=== PATIENT | male | born 1935 | race Caucasian/White ===

== ENCOUNTER 2016-06-28 09:35 | Outpatient (CLI) | payer MEDICARE, OTHER | END 2016-06-28 09:36 | disposition home or self-care (01) | DX: E11.9 Type 2 diabetes mellitus without complications (principal); I10 Essential (primary) hypertension; I50.9 Heart failure, unspecified ==

== ENCOUNTER 2016-08-12 08:44 | Outpatient (CLI) | payer MEDICARE, OTHER | END 2016-08-12 08:45 | disposition home or self-care (01) | DX: I50.9 Heart failure, unspecified (principal); I25.10 Atherosclerotic heart disease of native coronary artery without angina pectoris; I35.0 Nonrheumatic aortic (valve) stenosis; I10 Essential (primary) hypertension ==

== ENCOUNTER 2016-11-03 08:50 | Outpatient (CLI) | payer MEDICARE, OTHER ==
[2016-11-03 09:21] LABS: ALBUMIN/GLOBULIN RATIO 1.2 (1.0-2.2); BILIRUBIN,TOTAL 0.9 mg/dL (0.2-1.0); CALCIUM 10.5 mg/dL (8.5-10.3); CREATININE 1.4 mg/dL (0.6-1.2); POTASSIUM 4.7 mmol/L (3.5-5.0); TOTAL PROTEIN 7.8 g/dL (6.7-8.2)
[2016-11-03 10:23] LABS: HEMOGLOBIN A1C 0.78 g/dL
== END 2016-11-03 08:51 | disposition home or self-care (01) ==
LOC: LAB 08:50
PROVIDERS: ATTEND Internal Medicine
DX: E11.9 Type 2 diabetes mellitus without complications (principal)
CPT/HCPCS: 36415; 80053; 83036

== ENCOUNTER 2017-01-04 11:07 | Outpatient (CLI) | payer MEDICARE, OTHER ==
[2017-01-04 11:26] LABS: BASOPHILS # (AUTO) 0.1 10^3/uL (0.0-0.1); EOSINOPHILS # (AUTO) 0.2 10^3/uL (0.0-0.7); EOSINOPHILS % (AUTO) 2.3 %; HCT - HEMATOCRIT 42.7 % (42.0-52.0); HGB - HEMOGLOBIN 14.8 g/dL (14.0-18.0); LYMPHOCYTES # (AUTO) 1.5 10^3/uL (1.5-3.5); LYMPHOCYTES % (AUTO) 17.3 %; MEAN CORPUSCULAR HEMOGLOBIN 31.6 pg (27.0-31.0); MEAN CORPUSCULAR HGB CONC 34.5 g/dL (32.0-36.0); MEAN CORPUSCULAR VOLUME 91.3 fL (80.0-94.0); MEAN PLATELET VOLUME 8.7 fL (7.4-11.4); MONOCYTES # (AUTO) 0.5 10^3/uL (0.0-1.0); MONOCYTES % (AUTO) 5.9 %; NEUTROPHILS # (AUTO) 6.2 10^3/uL (1.5-6.6); NEUTROPHILS % (AUTO) 73.5 %; RED BLOOD COUNT 4.68 10^6/uL (4.70-6.10); RED CELL DISTRIBUTION WIDTH 14.4 % (12.0-15.0); UNCORRECTED WHITE BLOOD COUNT 8.5 x10^3/uL; WHITE BLOOD COUNT 8.5 x10^3/uL (4.8-10.8)
[2017-01-04 11:44] LABS: BUN - BLOOD UREA NITROGEN 49 mg/dL (6-20); CALCIUM 10.7 mg/dL (8.5-10.3); CARBON DIOXIDE - CO2 28 mmol/L (21-32); CHLORIDE 97 mmol/L (101-111); CHOL/HDL RATIO 4.6 (<5.0); CHOLESTEROL 158 mg/dL; CREATININE 1.8 mg/dL (0.6-1.2); GFR - MDRD 37 (>89); GLUCOSE 155 mg/dL (70-100); HDL CHOLESTEROL 34 mg/dL; LDL/HDL RATIO 1.9 (<3.6); POTASSIUM 5.2 mmol/L (3.5-5.0); SODIUM 135 mmol/L (135-145); TRIGLYCERIDES 290 mg/dL; VLDL CHOLESTEROL 58 mg/dL
== END 2017-01-04 11:08 | disposition home or self-care (01) ==
LOC: LAB 11:07
PROVIDERS: ATTEND Internal Medicine Cardiovascular Disease
DX: I50.9 Heart failure, unspecified (principal); E11.59 Type 2 diabetes mellitus with other circulatory complications; Z95.810 Presence of automatic (implantable) cardiac defibrillator; I35.0 Nonrheumatic aortic (valve) stenosis; I10 Essential (primary) hypertension
CPT/HCPCS: 36415; 80048; 80061; 85025

== ENCOUNTER 2017-02-27 10:02 | Outpatient (CLI) | payer MEDICARE, OTHER ==
[2017-02-27 10:35] LABS: CALCIUM 10.1 mg/dL (8.5-10.3); CREATININE 1.6 mg/dL (0.6-1.2); POTASSIUM 5.3 mmol/L (3.5-5.0)
[2017-02-27 10:44] LABS: HEMOGLOBIN A1C 0.81 g/dL
== END 2017-02-27 10:03 | disposition home or self-care (01) ==
LOC: LAB 10:02
PROVIDERS: ATTEND Internal Medicine
DX: E11.9 Type 2 diabetes mellitus without complications (principal)
CPT/HCPCS: 36415; 80048; 83036

== ENCOUNTER 2017-04-03 09:51 | Outpatient (CLI) | payer MEDICARE, OTHER ==
[2017-04-03 10:36] LABS: CALCIUM 10.2 mg/dL (8.5-10.3); CREATININE 1.5 mg/dL (0.6-1.2); POTASSIUM 4.7 mmol/L (3.5-5.0)
== END 2017-04-03 09:52 | disposition home or self-care (01) ==
LOC: LAB 09:51
PROVIDERS: ATTEND Internal Medicine Cardiovascular Disease
DX: I25.10 Atherosclerotic heart disease of native coronary artery without angina pectoris (principal); Z95.1 Presence of aortocoronary bypass graft; I50.9 Heart failure, unspecified; I10 Essential (primary) hypertension; E78.5 Hyperlipidemia, unspecified; I35.0 Nonrheumatic aortic (valve) stenosis; N18.3 Chronic kidney disease, stage 3 (moderate)
CPT/HCPCS: 36415; 80048

== ENCOUNTER 2017-05-30 10:03 | Outpatient (CLI) | payer MEDICARE, OTHER ==
[2017-05-30 10:48] LABS: CALCIUM 10.8 mg/dL (8.5-10.3); CREATININE 1.8 mg/dL (0.6-1.2)
[2017-05-30 10:56] LABS: HB2 TOTAL 16.3 g/dL; HEMOGLOBIN A1C 0.92 g/dL; HEMOGLOBIN A1C % 7.3 % (4.6-6.2)
== END 2017-05-30 10:04 | disposition home or self-care (01) ==
LOC: LAB 10:03
PROVIDERS: ATTEND Internal Medicine
DX: E11.9 Type 2 diabetes mellitus without complications (principal); I10 Essential (primary) hypertension
CPT/HCPCS: 36415; 80048; 83036

== ENCOUNTER 2017-07-03 09:45 | Outpatient (CLI) | payer MEDICARE, OTHER ==
[2017-07-03 10:26] LABS: CALCIUM 10.3 mg/dL (8.5-10.3); CREATININE 1.6 mg/dL (0.6-1.2)
== END 2017-07-03 09:46 | disposition home or self-care (01) ==
LOC: LAB 09:45
PROVIDERS: ATTEND Internal Medicine Cardiovascular Disease
DX: I25.10 Atherosclerotic heart disease of native coronary artery without angina pectoris (principal); I13.0 Hypertensive heart and chronic kidney disease with heart failure and stage 1 through stage 4 chronic kidney disease, or unspecified chronic kidney disease; N18.3 Chronic kidney disease, stage 3 (moderate); I50.9 Heart failure, unspecified; E78.5 Hyperlipidemia, unspecified; I35.0 Nonrheumatic aortic (valve) stenosis; Z95.1 Presence of aortocoronary bypass graft
CPT/HCPCS: 36415; 80048

== ENCOUNTER 2017-08-30 10:06 | Outpatient (CLI) | payer MEDICARE, OTHER ==
[2017-08-30 10:40] LABS: ALBUMIN 4.6 g/dL (3.2-5.5); ALBUMIN/GLOBULIN RATIO 1.4 (1.0-2.2); BILIRUBIN,TOTAL 0.6 mg/dL (0.2-1.0); CALCIUM 10.1 mg/dL (8.5-10.3); CREATININE 1.7 mg/dL (0.6-1.2); TOTAL PROTEIN 7.9 g/dL (6.7-8.2)
[2017-08-30 10:59] LABS: HB2 TOTAL 15.4 g/dL; HEMOGLOBIN A1C 0.87 g/dL; HEMOGLOBIN A1C % 7.3 % (4.6-6.2)
== END 2017-08-30 10:07 | disposition home or self-care (01) ==
LOC: LAB 10:06
PROVIDERS: ATTEND Internal Medicine
DX: I50.22 Chronic systolic (congestive) heart failure (principal); E11.9 Type 2 diabetes mellitus without complications
CPT/HCPCS: 36415; 80053; 83036

== ENCOUNTER 2017-11-21 10:15 | Outpatient (CLI) | payer MEDICARE, OTHER ==
[2017-11-21 10:31] LABS: BASOPHILS # (AUTO) 0.1 10^3/uL (0.0-0.1); BASOPHILS % (AUTO) 0.8 %; EOSINOPHILS # (AUTO) 0.2 10^3/uL (0.0-0.7); EOSINOPHILS % (AUTO) 3.3 %; HGB - HEMOGLOBIN 13.8 g/dL (14.0-18.0); LYMPHOCYTES # (AUTO) 1.7 10^3/uL (1.5-3.5); LYMPHOCYTES % (AUTO) 23.3 %; MEAN CORPUSCULAR HEMOGLOBIN 31.4 pg (27.0-31.0); MEAN CORPUSCULAR HGB CONC 33.3 g/dL (32.0-36.0); MEAN CORPUSCULAR VOLUME 94.4 fL (80.0-94.0); MEAN PLATELET VOLUME 8.8 fL (7.4-11.4); MONOCYTES # (AUTO) 0.5 10^3/uL (0.0-1.0); MONOCYTES % (AUTO) 6.6 %; NEUTROPHILS # (AUTO) 4.9 10^3/uL (1.5-6.6); PLT - PLATELET COUNT 156 10^3/uL (130-450); RED BLOOD COUNT 4.38 10^6/uL (4.70-6.10); RED CELL DISTRIBUTION WIDTH 14.8 % (12.0-15.0); WHITE BLOOD COUNT 7.4 x10^3/uL (4.8-10.8)
[2017-11-21 10:48] LABS: HB2 TOTAL 15.5 g/dL; HEMOGLOBIN A1C 0.86 g/dL; HEMOGLOBIN A1C % 7.2 % (4.6-6.2)
[2017-11-21 10:54] LABS: ALBUMIN 4.1 g/dL (3.2-5.5); ALBUMIN/GLOBULIN RATIO 1.1 (1.0-2.2); BILIRUBIN,TOTAL 0.8 mg/dL (0.2-1.0); CALCIUM 9.8 mg/dL (8.5-10.3); CREATININE 1.5 mg/dL (0.6-1.2); TOTAL PROTEIN 7.8 g/dL (6.7-8.2)
== END 2017-11-21 10:16 | disposition home or self-care (01) ==
LOC: LAB 10:15
PROVIDERS: ATTEND Internal Medicine
DX: I10 Essential (primary) hypertension (principal); E11.9 Type 2 diabetes mellitus without complications; E87.5 Hyperkalemia
CPT/HCPCS: 36415; 80053; 83036; 85025

== ENCOUNTER 2018-02-22 10:23 | Outpatient (CLI) | payer MEDICARE, OTHER ==
[2018-02-22 10:46] LABS: BASOPHILS # (AUTO) 0.1 10^3/uL (0.0-0.1); EOSINOPHILS # (AUTO) 0.2 10^3/uL (0.0-0.7); EOSINOPHILS % (AUTO) 2.4 %; HGB - HEMOGLOBIN 14.3 g/dL (14.0-18.0); LYMPHOCYTES # (AUTO) 1.3 10^3/uL (1.5-3.5); LYMPHOCYTES % (AUTO) 20.3 %; MEAN CORPUSCULAR HEMOGLOBIN 31.9 pg (27.0-31.0); MEAN CORPUSCULAR HGB CONC 34.5 g/dL (32.0-36.0); MEAN CORPUSCULAR VOLUME 92.4 fL (80.0-94.0); MEAN PLATELET VOLUME 8.8 fL (7.4-11.4); MONOCYTES # (AUTO) 0.5 10^3/uL (0.0-1.0); MONOCYTES % (AUTO) 7.8 %; NEUTROPHILS # (AUTO) 4.5 10^3/uL (1.5-6.6); NEUTROPHILS % (AUTO) 68.5 %; PLT - PLATELET COUNT 145 10^3/uL (130-450); RED BLOOD COUNT 4.47 10^6/uL (4.70-6.10); RED CELL DISTRIBUTION WIDTH 14.2 % (12.0-15.0); WHITE BLOOD COUNT 6.5 x10^3/uL (4.8-10.8)
[2018-02-22 11:14] LABS: CREATININE,URINE 34.6 mg/dL; MICROALBUM/CREATININE RATIO,UR 14.5 ug/mg (<30.0); MICROALBUMIN,URINE 0.5 mg/dL (0-300.0)
[2018-02-22 11:31] LABS: ALBUMIN 4.4 g/dL (3.2-5.5); ALBUMIN/GLOBULIN RATIO 1.3 (1.0-2.2); BILIRUBIN,TOTAL 0.9 mg/dL (0.2-1.0); CALCIUM 9.9 mg/dL (8.5-10.3); CREATININE 1.7 mg/dL (0.6-1.2); TOTAL PROTEIN 7.7 g/dL (6.7-8.2)
[2018-02-22 14:03] LABS: HB2 TOTAL 15.2 g/dL; HEMOGLOBIN A1C 0.94 g/dL; HEMOGLOBIN A1C % 7.8 % (4.6-6.2)
== END 2018-02-22 10:24 | disposition home or self-care (01) ==
LOC: LAB 10:23
PROVIDERS: ATTEND Internal Medicine
DX: I25.10 Atherosclerotic heart disease of native coronary artery without angina pectoris (principal); E11.22 Type 2 diabetes mellitus with diabetic chronic kidney disease; N18.9 Chronic kidney disease, unspecified
CPT/HCPCS: 36415; 80053; 82043; 82570; 83036; 85025

== ENCOUNTER 2018-03-27 09:38 | Outpatient (CLI) | payer MEDICARE, OTHER ==
[2018-03-27 10:18] LABS: BASOPHILS % (AUTO) 0.7 %; EOSINOPHILS # (AUTO) 0.2 10^3/uL (0.0-0.7); EOSINOPHILS % (AUTO) 2.6 %; LYMPHOCYTES # (AUTO) 1.3 10^3/uL (1.5-3.5); LYMPHOCYTES % (AUTO) 17.8 %; MEAN CORPUSCULAR HEMOGLOBIN 31.5 pg (27.0-31.0); MEAN CORPUSCULAR VOLUME 92.6 fL (80.0-94.0); MEAN PLATELET VOLUME 9.4 fL (7.4-11.4); MONOCYTES # (AUTO) 0.4 10^3/uL (0.0-1.0); MONOCYTES % (AUTO) 5.6 %; NEUTROPHILS # (AUTO) 5.2 10^3/uL (1.5-6.6); NEUTROPHILS % (AUTO) 73.3 %; PLT - PLATELET COUNT 149 10^3/uL (130-450); RED BLOOD COUNT 4.44 10^6/uL (4.70-6.10); RED CELL DISTRIBUTION WIDTH 14.7 % (12.0-15.0); WHITE BLOOD COUNT 7.2 x10^3/uL (4.8-10.8)
[2018-03-27 10:26] LABS: BUN - BLOOD UREA NITROGEN 52 mg/dL (6-20); CARBON DIOXIDE - CO2 24 mmol/L (21-32); CHLORIDE 99 mmol/L (101-111); CHOL/HDL RATIO 4.1 (<5.0); CHOLESTEROL 131 mg/dL; CREATININE 1.6 mg/dL (0.6-1.2); GFR - MDRD 42 (>89); GLUCOSE 154 mg/dL (70-100); HDL CHOLESTEROL 32 mg/dL; LDL CHOLESTEROL,CALCULATED 48 mg/dL; LDL/HDL RATIO 1.5 (<3.6); SODIUM 132 mmol/L (135-145); VLDL CHOLESTEROL 51 mg/dL
== END 2018-03-27 09:39 | disposition home or self-care (01) ==
LOC: LAB 09:38
PROVIDERS: ATTEND Internal Medicine Cardiovascular Disease
DX: I50.22 Chronic systolic (congestive) heart failure (principal)
CPT/HCPCS: 36415; 80048; 80061; 83721; 85025

== ENCOUNTER 2018-03-29 14:56 | Outpatient (CLI) | payer MEDICARE, OTHER ==
--- NOTE | 2018-03-29 17:13 | XRAY Report ---
Reason: CHRONIC SYSTOLIC HEART FAILURE Procedure Date: 03/29/2018 Accession Number: [id number] / [id number] Procedure: XR - Chest 2 View X-Ray CPT Code: 38741 FULL RESULT: EXAM: CHEST RADIOGRAPHY EXAM DATE: 03/29/2018 03:07 PM. CLINICAL HISTORY: CHRONIC SYSTOLIC HEART FAILURE. COMPARISON: CHEST 1 VIEW 03/14/2016 6:19 PM. TECHNIQUE: 2 views. FINDINGS: Lungs/Pleura: No focal opacities evident. No pleural effusion. No pneumothorax. Normal volumes. Mediastinum: The heart size is normal. There is a left chest pacemaker defibrillator device. The lead overlies the right ventricle. Sternotomy wires appear unchanged. There is mild aortic tortuosity. Other: None. IMPRESSION: 1. No evidence of edema or effusion. Clear lungs. 2. Mildly tortuous aorta. RADIA
== END 2018-03-29 14:57 | disposition home or self-care (01) ==
LOC: DI 14:56
PROVIDERS: ATTEND Internal Medicine Cardiovascular Disease
DX: I50.22 Chronic systolic (congestive) heart failure (principal); I77.1 Stricture of artery
CPT/HCPCS: 71046

== ENCOUNTER 2018-05-21 08:53 | Outpatient (CLI) | payer MEDICARE, OTHER ==
[2018-05-21 09:22] LABS: CALCIUM 9.6 mg/dL (8.5-10.3); CREATININE 1.6 mg/dL (0.6-1.2)
[2018-05-21 09:33] LABS: HB2 TOTAL 14.1 g/dL; HEMOGLOBIN A1C 0.8 g/dL; HEMOGLOBIN A1C % 7.3 % (4.6-6.2)
== END 2018-05-21 08:54 | disposition home or self-care (01) ==
LOC: LAB 08:53
PROVIDERS: ATTEND Internal Medicine
DX: E11.9 Type 2 diabetes mellitus without complications (principal); I50.22 Chronic systolic (congestive) heart failure; I10 Essential (primary) hypertension
CPT/HCPCS: 36415; 80048; 83036; 83880

== ENCOUNTER 2018-08-14 08:45 | Outpatient (CLI) | payer MEDICARE, OTHER ==
[2018-08-14 09:54] LABS: HB2 TOTAL 15.2 g/dL; HEMOGLOBIN A1C 0.91 g/dL; HEMOGLOBIN A1C % 7.6 % (4.6-6.2)
[2018-08-14 09:58] LABS: CALCIUM 10.2 mg/dL (8.5-10.3); CREATININE 1.5 mg/dL (0.6-1.2)
== END 2018-08-14 08:46 | disposition home or self-care (01) ==
LOC: LAB 08:45
PROVIDERS: ATTEND Internal Medicine
DX: E11.22 Type 2 diabetes mellitus with diabetic chronic kidney disease (principal); N18.9 Chronic kidney disease, unspecified
CPT/HCPCS: 36415; 80048; 83036

== ENCOUNTER 2018-11-14 09:36 | Outpatient (CLI) | payer MEDICARE, OTHER ==
[2018-11-14 09:58] LABS: CALCIUM 10.1 mg/dL (8.5-10.3); CREATININE 1.7 mg/dL (0.6-1.2)
[2018-11-14 10:21] LABS: HB2 TOTAL 14.4 g/dL; HEMOGLOBIN A1C 0.89 g/dL; HEMOGLOBIN A1C % 7.8 % (4.6-6.2)
== END 2018-11-14 09:37 | disposition home or self-care (01) ==
LOC: LAB 09:36
PROVIDERS: ATTEND Internal Medicine
DX: I25.10 Atherosclerotic heart disease of native coronary artery without angina pectoris (principal); I50.22 Chronic systolic (congestive) heart failure; E11.22 Type 2 diabetes mellitus with diabetic chronic kidney disease; N18.9 Chronic kidney disease, unspecified
CPT/HCPCS: 36415; 80048; 83036; 83880

== ENCOUNTER 2019-01-23 09:25 | Outpatient (CLI) | payer MEDICARE, OTHER ==
[2019-01-23 09:55] LABS: BASOPHILS % (AUTO) 0.6 %; EOSINOPHILS # (AUTO) 0.3 10^3/uL (0.0-0.7); EOSINOPHILS % (AUTO) 3.8 %; HGB - HEMOGLOBIN 13.5 g/dL (14.0-18.0); LYMPHOCYTES # (AUTO) 1.6 10^3/uL (1.5-3.5); LYMPHOCYTES % (AUTO) 22.6 %; MEAN CORPUSCULAR HEMOGLOBIN 31.6 pg (27.0-31.0); MEAN CORPUSCULAR HGB CONC 33.6 g/dL (32.0-36.0); MEAN CORPUSCULAR VOLUME 94.1 fL (80.0-94.0); MEAN PLATELET VOLUME 10.4 fL (7.4-11.4); MONOCYTES # (AUTO) 0.5 10^3/uL (0.0-1.0); MONOCYTES % (AUTO) 6.6 %; NEUTROPHILS # (AUTO) 4.5 10^3/uL (1.5-6.6); NEUTROPHILS % (AUTO) 65.8 %; PLT - PLATELET COUNT 153 10^3/uL (130-450); RED BLOOD COUNT 4.27 10^6/uL (4.70-6.10); RED CELL DISTRIBUTION WIDTH 13.5 % (12.0-15.0); WHITE BLOOD COUNT 6.9 x10^3/uL (4.8-10.8)
[2019-01-23 10:22] LABS: CALCIUM 10.3 mg/dL (8.5-10.3); CREATININE 1.5 mg/dL (0.6-1.2)
== END 2019-01-23 09:26 | disposition home or self-care (01) ==
LOC: LAB 09:25
PROVIDERS: ATTEND Internal Medicine Cardiovascular Disease
DX: I50.22 Chronic systolic (congestive) heart failure (principal); I25.5 Ischemic cardiomyopathy
CPT/HCPCS: 36415; 80048; 85025

== ENCOUNTER 2019-02-14 08:53 | Outpatient (CLI) | payer MEDICARE, OTHER ==
[2019-02-14 09:17] LABS: CALCIUM 10.2 mg/dL (8.5-10.3); CREATININE 1.7 mg/dL (0.6-1.2)
[2019-02-14 09:24] LABS: HB2 TOTAL 14.4 g/dL; HEMOGLOBIN A1C 0.87 g/dL; HEMOGLOBIN A1C % 7.7 % (4.6-6.2)
== END 2019-02-14 08:54 | disposition home or self-care (01) ==
LOC: LAB 08:53
PROVIDERS: ATTEND Internal Medicine
DX: E11.9 Type 2 diabetes mellitus without complications (principal)
CPT/HCPCS: 36415; 80048; 83036

== ENCOUNTER 2019-05-14 09:31 | Outpatient (CLI) | payer MEDICARE, OTHER ==
[2019-05-14 10:00] LABS: CALCIUM 10.6 mg/dL (8.5-10.3); CREATININE 1.6 mg/dL (0.6-1.2)
[2019-05-14 10:13] LABS: HB2 TOTAL 14.5 g/dL; HEMOGLOBIN A1C 0.89 g/dL; HEMOGLOBIN A1C % 7.8 % (4.6-6.2)
== END 2019-05-14 09:32 | disposition home or self-care (01) ==
LOC: LAB 09:31
PROVIDERS: ATTEND Internal Medicine
DX: E11.9 Type 2 diabetes mellitus without complications (principal); I10 Essential (primary) hypertension
CPT/HCPCS: 36415; 80048; 83036

== ENCOUNTER 2019-08-22 08:58 | Outpatient (CLI) | payer MEDICARE, OTHER ==
[2019-08-22 09:23] LABS: CREATININE 1.8 mg/dL (0.6-1.2)
[2019-08-22 09:41] LABS: HB2 TOTAL 14.6 g/dL; HEMOGLOBIN A1C 0.81 g/dL; HEMOGLOBIN A1C % 7.2 % (4.6-6.2)
== END 2019-08-22 08:59 | disposition home or self-care (01) ==
LOC: LAB 08:58
PROVIDERS: ATTEND Internal Medicine
DX: E11.9 Type 2 diabetes mellitus without complications (principal)
CPT/HCPCS: 36415; 80048; 83036

== ENCOUNTER 2020-01-31 09:00 | Outpatient (CLI) | payer MEDICARE, OTHER ==
[2020-01-31 09:17] LABS: BASOPHILS # (AUTO) 0.1 10^3/uL (0.0-0.1); EOSINOPHILS # (AUTO) 0.3 10^3/uL (0.0-0.7); EOSINOPHILS % (AUTO) 3.6 %; HGB - HEMOGLOBIN 13.4 g/dL (14.0-18.0); LYMPHOCYTES # (AUTO) 1.8 10^3/uL (1.5-3.5); LYMPHOCYTES % (AUTO) 24.2 %; MEAN CORPUSCULAR HEMOGLOBIN 31.8 pg (27.0-31.0); MEAN CORPUSCULAR HGB CONC 33.9 g/dL (32.0-36.0); MEAN CORPUSCULAR VOLUME 93.8 fL (80.0-94.0); MEAN PLATELET VOLUME 10.6 fL (7.4-11.4); MONOCYTES # (AUTO) 0.5 10^3/uL (0.0-1.0); MONOCYTES % (AUTO) 6.2 %; NEUTROPHILS # (AUTO) 4.7 10^3/uL (1.5-6.6); NEUTROPHILS % (AUTO) 64.6 %; PLT - PLATELET COUNT 149 10^3/uL (130-450); RED BLOOD COUNT 4.21 10^6/uL (4.70-6.10); RED CELL DISTRIBUTION WIDTH 13.9 % (12.0-15.0); WHITE BLOOD COUNT 7.2 x10^3/uL (4.8-10.8)
[2020-01-31 09:29] LABS: BUN - BLOOD UREA NITROGEN 55 mg/dL (6-20); CALCIUM 10.1 mg/dL (8.5-10.3); CARBON DIOXIDE - CO2 26 mmol/L (21-32); CHLORIDE 102 mmol/L (101-111); CHOLESTEROL 141 mg/dL; CREATININE 1.7 mg/dL (0.6-1.2); GLUCOSE 110 mg/dL (70-100); HDL CHOLESTEROL 35 mg/dL; LDL CHOLESTEROL,CALCULATED 59 mg/dL; LDL/HDL RATIO 1.7 (<3.6); SODIUM 138 mmol/L (135-145); VLDL CHOLESTEROL 47 mg/dL
== END 2020-01-31 09:01 | disposition home or self-care (01) ==
LOC: LAB 09:00
PROVIDERS: ATTEND Internal Medicine Cardiovascular Disease
DX: N18.3 Chronic kidney disease, stage 3 (moderate) (principal); I25.10 Atherosclerotic heart disease of native coronary artery without angina pectoris
CPT/HCPCS: 36415; 80048; 80061; 83721; 85025

== ENCOUNTER 2020-04-03 09:40 | Outpatient (CLI) | payer MEDICARE, OTHER ==
[2020-04-03 09:49] LABS: BASOPHILS # (AUTO) 0.1 10^3/uL (0.0-0.1); BASOPHILS % (AUTO) 0.9 %; EOSINOPHILS # (AUTO) 0.2 10^3/uL (0.0-0.7); EOSINOPHILS % (AUTO) 3.1 %; HGB - HEMOGLOBIN 13.4 g/dL (14.0-18.0); LYMPHOCYTES # (AUTO) 1.6 10^3/uL (1.5-3.5); LYMPHOCYTES % (AUTO) 24.5 %; MEAN CORPUSCULAR HEMOGLOBIN 31.5 pg (27.0-31.0); MEAN CORPUSCULAR VOLUME 95.3 fL (80.0-94.0); MEAN PLATELET VOLUME 10.6 fL (7.4-11.4); MONOCYTES # (AUTO) 0.4 10^3/uL (0.0-1.0); MONOCYTES % (AUTO) 6.6 %; NEUTROPHILS # (AUTO) 4.3 10^3/uL (1.5-6.6); NEUTROPHILS % (AUTO) 64.6 %; PLT - PLATELET COUNT 147 10^3/uL (130-450); RED BLOOD COUNT 4.26 10^6/uL (4.70-6.10); RED CELL DISTRIBUTION WIDTH 13.5 % (12.0-15.0); WHITE BLOOD COUNT 6.7 x10^3/uL (4.8-10.8)
[2020-04-03 10:08] LABS: CALCIUM 9.9 mg/dL (8.5-10.3)
[2020-04-04 08:05] LABS: HEMOGLOBIN A1c% 7.2 % (4.27-6.07)
== END 2020-04-03 09:41 | disposition home or self-care (01) ==
LOC: LAB 09:40
PROVIDERS: ATTEND Internal Medicine
DX: I25.10 Atherosclerotic heart disease of native coronary artery without angina pectoris (principal); E11.22 Type 2 diabetes mellitus with diabetic chronic kidney disease; N18.9 Chronic kidney disease, unspecified
CPT/HCPCS: 36415; 80048; 83036; 85025

== ENCOUNTER 2020-07-08 08:00 | Outpatient (CLI) | payer MEDICARE, OTHER ==
[2020-07-08 09:07] LABS: BASOPHILS # (AUTO) 0.1 10^3/uL (0.0-0.1); BASOPHILS % (AUTO) 1.2 %; EOSINOPHILS # (AUTO) 0.2 10^3/uL (0.0-0.7); EOSINOPHILS % (AUTO) 3.2 %; HGB - HEMOGLOBIN 13.9 g/dL (14.0-18.0); LYMPHOCYTES # (AUTO) 1.5 10^3/uL (1.5-3.5); LYMPHOCYTES % (AUTO) 25.2 %; MEAN CORPUSCULAR HEMOGLOBIN 31.6 pg (27.0-31.0); MEAN CORPUSCULAR HGB CONC 33.3 g/dL (32.0-36.0); MEAN PLATELET VOLUME 10.9 fL (7.4-11.4); MONOCYTES # (AUTO) 0.5 10^3/uL (0.0-1.0); MONOCYTES % (AUTO) 7.6 %; NEUTROPHILS # (AUTO) 3.7 10^3/uL (1.5-6.6); NEUTROPHILS % (AUTO) 62.5 %; PLT - PLATELET COUNT 134 10^3/uL (130-450); RED CELL DISTRIBUTION WIDTH 13.1 % (12.0-15.0); WHITE BLOOD COUNT 5.9 x10^3/uL (4.8-10.8)
[2020-07-08 09:16] LABS: ALBUMIN 4.4 g/dL (3.2-5.5); ALBUMIN/GLOBULIN RATIO 1.3 (1.0-2.2); BILIRUBIN,TOTAL 0.8 mg/dL (0.2-1.0); CALCIUM 10.3 mg/dL (8.5-10.3); CREATININE 1.5 mg/dL (0.6-1.2); TOTAL PROTEIN 7.7 g/dL (6.7-8.2)
[2020-07-08 10:13] LABS: MICROALBUMIN,URINE 18.1 mg/dL (0-300.0)
[2020-07-08 15:22] LABS: HEMOGLOBIN A1c% 7.3 % (4.27-6.07)
== END 2020-07-08 23:59 | disposition home or self-care (01) ==
LOC: LAB 08:00
PROVIDERS: ATTEND Internal Medicine
DX: I12.9 Hypertensive chronic kidney disease with stage 1 through stage 4 chronic kidney disease, or unspecified chronic kidney disease (principal); E11.22 Type 2 diabetes mellitus with diabetic chronic kidney disease; N18.9 Chronic kidney disease, unspecified; E87.5 Hyperkalemia
CPT/HCPCS: 36415; 80053; 82043; 82570; 83036; 85025

== ENCOUNTER 2020-09-09 17:49 | Outpatient (CLI) | payer MEDICARE, OTHER ==
[2020-09-09 18:09] LABS: BASOPHILS # (AUTO) 0.1 10^3/uL (0.0-0.1); BASOPHILS % (AUTO) 0.7 %; EOSINOPHILS # (AUTO) 0.2 10^3/uL (0.0-0.7); EOSINOPHILS % (AUTO) 3.2 %; HGB - HEMOGLOBIN 14.1 g/dL (14.0-18.0); LYMPHOCYTES # (AUTO) 1.8 10^3/uL (1.5-3.5); LYMPHOCYTES % (AUTO) 25.6 %; MEAN CORPUSCULAR HEMOGLOBIN 30.9 pg (27.0-31.0); MEAN CORPUSCULAR HGB CONC 32.8 g/dL (32.0-36.0); MEAN CORPUSCULAR VOLUME 94.1 fL (80.0-94.0); MEAN PLATELET VOLUME 10.9 fL (7.4-11.4); MONOCYTES # (AUTO) 0.5 10^3/uL (0.0-1.0); MONOCYTES % (AUTO) 7.3 %; NEUTROPHILS # (AUTO) 4.5 10^3/uL (1.5-6.6); NEUTROPHILS % (AUTO) 62.9 %; PLT - PLATELET COUNT 155 10^3/uL (130-450); RED BLOOD COUNT 4.57 10^6/uL (4.70-6.10); RED CELL DISTRIBUTION WIDTH 13.7 % (12.0-15.0); WHITE BLOOD COUNT 7.1 x10^3/uL (4.8-10.8)
[2020-09-09 18:13] LABS: INR 1.2 (0.8-1.2); PT - PROTHROMBIN TIME 13.4 secs (9.9-12.6)
[2020-09-09 18:18] LABS: BILIRUBIN,URINE NEGATIVE (NEGATIVE); GLUCOSE, URINE (UA) NEGATIVE (NEGATIVE); KETONES,URINE (UA) NEGATIVE (NEGATIVE); LEUKOCYTE ESTERASE, URINE NEGATIVE (NEGATIVE); NITRITE,URINE NEGATIVE (NEGATIVE); OCCULT BLOOD,URINE LARGE (NEGATIVE); PROTEIN,URINE TRACE mg/dL (NEGATIVE); UROBILINOGEN,URINE 0.2 (NORMAL) E.U./dL (NORMAL)
[2020-09-09 18:20] LABS: PARTIAL THROMBOPLASTIN TIME 28.6 secs (24.9-33.3)
[2020-09-09 18:34] LABS: CLARITY,URINE HAZY (CLEAR)
[2020-09-09 19:03] LABS: BACTERIA,URINE Rare /HPF (None Seen); RBC,URINE TNTC /HPF (0-5); SQUAMOUS EPITHELIAL CELL,UR RARE Squamous (<= Few); WBC,URINE 0-3 /HPF (0-3)
== END 2020-09-09 17:50 | disposition home or self-care (01) ==
LOC: LAB 17:49
PROVIDERS: ATTEND Internal Medicine
DX: R23.8 Other skin changes (principal); R31.9 Hematuria, unspecified
CPT/HCPCS: 36415; 81001; 85025; 85610; 85651; 85730

== ENCOUNTER 2020-11-03 09:58 | Outpatient (CLI) | payer MEDICARE, OTHER ==
[2020-11-03 10:36] LABS: BASOPHILS % (AUTO) 0.6 %; EOSINOPHILS # (AUTO) 0.2 10^3/uL (0.0-0.7); EOSINOPHILS % (AUTO) 2.6 %; HCT - HEMATOCRIT 42.8 % (42.0-52.0); HGB - HEMOGLOBIN 14.2 g/dL (14.0-18.0); LYMPHOCYTES # (AUTO) 1.6 10^3/uL (1.5-3.5); LYMPHOCYTES % (AUTO) 22.5 %; MEAN CORPUSCULAR HEMOGLOBIN 30.9 pg (27.0-31.0); MEAN CORPUSCULAR HGB CONC 33.2 g/dL (32.0-36.0); MEAN PLATELET VOLUME 10.8 fL (7.4-11.4); MONOCYTES # (AUTO) 0.4 10^3/uL (0.0-1.0); MONOCYTES % (AUTO) 5.9 %; NEUTROPHILS # (AUTO) 4.7 10^3/uL (1.5-6.6); PLT - PLATELET COUNT 155 10^3/uL (130-450); RED CELL DISTRIBUTION WIDTH 13.8 % (12.0-15.0); WHITE BLOOD COUNT 6.9 x10^3/uL (4.8-10.8)
[2020-11-03 10:46] LABS: CALCIUM 10.4 mg/dL (8.5-10.3); CREATININE 1.7 mg/dL (0.6-1.2); POTASSIUM 4.5 mmol/L (3.5-5.0)
[2020-11-03 11:22] LABS: CREATININE,URINE 116.4 mg/dL; MICROALBUM/CREATININE RATIO,UR 527.5 ug/mg (<30.0); MICROALBUMIN,URINE 61.4 mg/dL (0-300.0)
[2020-11-03 12:56] LABS: ESTIMATED AVERAGE GLUCOSE 174 mg/dL (70-100); HEMOGLOBIN A1c% 7.7 % (4.27-6.07)
== END 2020-11-03 09:59 | disposition home or self-care (01) ==
LOC: LAB 09:58
PROVIDERS: ATTEND Internal Medicine
DX: E11.22 Type 2 diabetes mellitus with diabetic chronic kidney disease (principal); I25.10 Atherosclerotic heart disease of native coronary artery without angina pectoris; N18.9 Chronic kidney disease, unspecified
CPT/HCPCS: 36415; 80048; 82043; 82570; 83036; 85025

== ENCOUNTER 2020-11-24 12:37 | Outpatient (CLI) | payer MEDICARE, OTHER ==
[2020-11-24 13:02] LABS: CALCIUM 10.6 mg/dL (8.5-10.3); CREATININE 1.6 mg/dL (0.6-1.2); POTASSIUM 4.4 mmol/L (3.5-5.0)
== END 2020-11-24 12:38 | disposition home or self-care (01) ==
LOC: LAB 12:37
PROVIDERS: ATTEND Internal Medicine Cardiovascular Disease
DX: I50.22 Chronic systolic (congestive) heart failure (principal)
CPT/HCPCS: 36415; 80048

== ENCOUNTER 2020-12-31 07:51 | Outpatient (CLI) | payer MEDICARE, OTHER | END 2020-12-31 07:52 | disposition home or self-care (01) | LOC: LAB 07:51 | PROVIDERS: ATTEND Specialist | DX: R31.0 Gross hematuria (principal) | CPT/HCPCS: 36415; 84153 ==

== ENCOUNTER 2021-02-02 09:17 | Outpatient (CLI) | payer MEDICARE, OTHER ==
[2021-02-02 09:38] LABS: BASOPHILS # (AUTO) 0.1 10^3/uL (0.0-0.1); BASOPHILS % (AUTO) 0.8 %; EOSINOPHILS # (AUTO) 0.2 10^3/uL (0.0-0.7); EOSINOPHILS % (AUTO) 3.7 %; HCT - HEMATOCRIT 42.6 % (42.0-52.0); HGB - HEMOGLOBIN 13.7 g/dL (14.0-18.0); LYMPHOCYTES # (AUTO) 1.3 10^3/uL (1.5-3.5); LYMPHOCYTES % (AUTO) 22.4 %; MEAN CORPUSCULAR HEMOGLOBIN 30.7 pg (27.0-31.0); MEAN CORPUSCULAR HGB CONC 32.2 g/dL (32.0-36.0); MEAN CORPUSCULAR VOLUME 95.5 fL (80.0-94.0); MEAN PLATELET VOLUME 10.1 fL (7.4-11.4); MONOCYTES # (AUTO) 0.4 10^3/uL (0.0-1.0); MONOCYTES % (AUTO) 7.4 %; NEUTROPHILS # (AUTO) 3.9 10^3/uL (1.5-6.6); NEUTROPHILS % (AUTO) 65.4 %; PLT - PLATELET COUNT 128 10^3/uL (130-450); RED BLOOD COUNT 4.46 10^6/uL (4.70-6.10); WHITE BLOOD COUNT 5.9 x10^3/uL (4.8-10.8)
[2021-02-02 09:54] LABS: BUN - BLOOD UREA NITROGEN 38 mg/dL (6-20); CALCIUM 10.5 mg/dL (8.5-10.3); CARBON DIOXIDE - CO2 24 mmol/L (21-32); CHLORIDE 104 mmol/L (101-111); CHOL/HDL RATIO 4.5 (<5.0); CHOLESTEROL 153 mg/dL; CREATININE 1.8 mg/dL (0.6-1.2); GFR - MDRD 36 (>89); GLUCOSE 119 mg/dL (70-100); HDL CHOLESTEROL 34 mg/dL; LDL CHOLESTEROL,CALCULATED 73 mg/dL; LDL/HDL RATIO 2.1 (<3.6); POTASSIUM 4.8 mmol/L (3.5-5.0); SODIUM 139 mmol/L (135-145); TRIGLYCERIDES 228 mg/dL; VLDL CHOLESTEROL 46 mg/dL
== END 2021-02-02 09:18 | disposition home or self-care (01) ==
LOC: LAB 09:17
PROVIDERS: ATTEND Internal Medicine Cardiovascular Disease
DX: I25.10 Atherosclerotic heart disease of native coronary artery without angina pectoris (principal)
CPT/HCPCS: 36415; 80048; 80061; 83721; 85025

== ENCOUNTER 2021-03-09 09:47 | Outpatient (CLI) | payer MEDICARE, OTHER ==
[2021-03-09 10:17] LABS: CALCIUM 10.9 mg/dL (8.5-10.3); CREATININE 1.7 mg/dL (0.6-1.2); POTASSIUM 4.5 mmol/L (3.5-5.0)
[2021-03-09 14:17] LABS: ESTIMATED AVERAGE GLUCOSE 160 mg/dL (70-100); HEMOGLOBIN A1c% 7.2 % (4.27-6.07)
== END 2021-03-09 09:48 | disposition home or self-care (01) ==
LOC: LAB 09:47
PROVIDERS: ATTEND Internal Medicine
DX: E11.22 Type 2 diabetes mellitus with diabetic chronic kidney disease (principal); N18.32 Chronic kidney disease, stage 3b
CPT/HCPCS: 36415; 80048; 83036

== ENCOUNTER 2021-05-05 11:17 | Outpatient (CLI) | payer MEDICARE, OTHER ==
[2021-05-05 11:49] LABS: CREATININE 1.8 mg/dL (0.6-1.2)
[2021-05-05] MEDS ORDERED: IOPAMIDOL-300 100 ML VIAL ONE (12:02)
[2021-05-05] MEDS ORDERED: IOPAMIDOL-300 100 ML VIAL IVP ONE (20:42)
--- NOTE | 2021-05-06 08:43 | CT Report ---
PROCEDURE: IVP INDICATIONS: BLADDER CA CONTRAST: IV CONTRAST: Isovue 300 ml: 100 PO CONTRAST: *NO PO CONTRAST TECHNIQUE: After the administration of oral and intravenous contrast, 5 mm thick sections acquired from the diap hragms to the symphysis. 5 mm thick coronal and sagittal reformats were acquired. For radiation dos e reduction, the following was used: automated exposure control, adjustment of mA and/or kV accordin g to patient size. COMPARISON: None. FINDINGS: Image quality: Excellent. Lung bases: Lung bases are clear. Heart size is mildly increased. There is severe coronary artery calcification. Small hiatal hernia. There is concentric thickening of the distal esophagus at the GE junction. Urinary system: Both kidneys are normal in size and enhancement. Small low-density cortical nodules in kidneys are most likely cysts. Contrast-filled renal calyces are normal in morphology without vick ling defects. Contrast filled portions of both ureters are normal in caliber. There are multiple bladder masses (8-10) consistent with bladder cancer. Reference lesions are listed in the followin) left bladder base; series 6 image 84; 2.1 x 3.2 cm. 2) left posterior bladder wall; series 6 image 79; 2.2 x 1.8 cm. 3) right bladder base; series 6 image 79; 2.6 x 2.2 cm. 4) right lateral bladder wall; series 6 image 80; 2.3 x 1.6 cm Solid organs: Liver and spleen are normal in size and enhancement. Gallbladder contains small galls tones. Biliary system is non dilated. Pancreas enhances normally. No adrenal nodules. Peritoneum and bowel: Bowel loops demonstrate normal wall thickness and caliber. No free fluid or a ir. Nodes and vessels: No retroperitoneal or mesenteric adenopathy by size criteria. Aorta and inferior vena cava are normal in size. There is moderate moderate atherosclerotic calcifications. Moderate st enosis at origins of the arteries bilaterally and the celiac trunk. Abdominal wall: No ventral hernias. Small fat-containing left inguinal hernia. Pelvis: No pathologic free pelvic fluid. No inguinal hernias or adenopathy. Bones: No suspicious bony lesions. No vertebral body compression fractures. IMPRESSION: 1. 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 2. No lymphadenopathy in abdomen or pelvis. 3. No findings to suggest distant metastasis. 4. No filling defects in upper renal collecting systems or ureters. No hydronephrosis. 5. Small low-density nodules in kidneys bilaterally are most likely renal cysts. No solid renal carmina s. 6. Small hiatal hernia. There is concentric thickening of the distal esophagus at the GE junction. Re commend esophagram or upper endoscopy for follow-up. 7. Cholelithiasis. Reviewed by: Tanner Beverly MD on 05/06/2021 8:41 AM PST Approved by: Tanner Beverly MD on 05/06/2021 8:41 AM PST Station ID: [id number]
== END 2021-05-05 11:18 | disposition home or self-care (01) ==
LOC: LAB 11:17
PROVIDERS: ATTEND Urology
DX: C67.9 Malignant neoplasm of bladder, unspecified (principal); R82.3 Hemoglobinuria; R93.422 Abnormal radiologic findings on diagnostic imaging of left kidney; R93.421 Abnormal radiologic findings on diagnostic imaging of right kidney; K44.9 Diaphragmatic hernia without obstruction or gangrene; R93.3 Abnormal findings on diagnostic imaging of other parts of digestive tract; K80.20 Calculus of gallbladder without cholecystitis without obstruction
CPT/HCPCS: 36415; 74178; 82565; Q9967

== ENCOUNTER 2021-06-15 08:04 | Outpatient (CLI) | payer MEDICARE, OTHER ==
[2021-06-15 08:28] LABS: BILIRUBIN,URINE NEGATIVE (NEGATIVE); GLUCOSE, URINE (UA) NEGATIVE (NEGATIVE); KETONES,URINE (UA) NEGATIVE (NEGATIVE); LEUKOCYTE ESTERASE, URINE NEGATIVE (NEGATIVE); NITRITE,URINE NEGATIVE (NEGATIVE); OCCULT BLOOD,URINE LARGE (NEGATIVE); PROTEIN,URINE TRACE mg/dL (NEGATIVE); UROBILINOGEN,URINE 0.2 (NORMAL) E.U./dL (NORMAL)
[2021-06-15 08:29] LABS: BASOPHILS # (AUTO) 0.1 10^3/uL (0.0-0.1); BASOPHILS % (AUTO) 0.7 %; EOSINOPHILS # (AUTO) 0.2 10^3/uL (0.0-0.7); EOSINOPHILS % (AUTO) 3.3 %; HCT - HEMATOCRIT 42.5 % (42.0-52.0); HGB - HEMOGLOBIN 14.1 g/dL (14.0-18.0); LYMPHOCYTES # (AUTO) 1.5 10^3/uL (1.5-3.5); LYMPHOCYTES % (AUTO) 21.1 %; MEAN CORPUSCULAR HEMOGLOBIN 31.1 pg (27.0-31.0); MEAN CORPUSCULAR HGB CONC 33.2 g/dL (32.0-36.0); MEAN CORPUSCULAR VOLUME 93.6 fL (80.0-94.0); MEAN PLATELET VOLUME 10.7 fL (7.4-11.4); MONOCYTES # (AUTO) 0.6 10^3/uL (0.0-1.0); MONOCYTES % (AUTO) 7.9 %; NEUTROPHILS # (AUTO) 4.6 10^3/uL (1.5-6.6); NEUTROPHILS % (AUTO) 66.7 %; PLT - PLATELET COUNT 146 10^3/uL (130-450); RED BLOOD COUNT 4.54 10^6/uL (4.70-6.10); RED CELL DISTRIBUTION WIDTH 13.7 % (12.0-15.0); WHITE BLOOD COUNT 6.9 x10^3/uL (4.8-10.8)
[2021-06-15 08:33] LABS: CALCIUM 10.2 mg/dL (8.5-10.3); CREATININE 1.5 mg/dL (0.6-1.2); POTASSIUM 4.3 mmol/L (3.5-5.0)
[2021-06-15 09:54] LABS: BACTERIA,URINE None Seen /HPF (None Seen); CLARITY,URINE SL. CLOUDY (CLEAR); RBC,URINE TNTC /HPF (0-5); SQUAMOUS EPITHELIAL CELL,UR RARE Squamous (<= Few)
== END 2021-06-15 08:05 | disposition home or self-care (01) ==
LOC: LAB 08:04
DX: C67.9 Malignant neoplasm of bladder, unspecified (principal)
CPT/HCPCS: 36415; 80048; 81001; 85025; 86850; 86900; 86901; 87086

== ENCOUNTER 2021-07-07 09:49 | Outpatient (CLI) | payer MEDICARE, OTHER ==
[2021-07-07 10:26] LABS: ALBUMIN 4.2 g/dL (3.2-5.5); ALBUMIN/GLOBULIN RATIO 1.3 (1.0-2.2); CALCIUM 10.3 mg/dL (8.5-10.3); CREATININE 1.7 mg/dL (0.6-1.2); POTASSIUM 4.3 mmol/L (3.5-5.0); TOTAL PROTEIN 7.4 g/dL (6.7-8.2)
[2021-07-07 11:06] LABS: CREATININE,URINE 45.3 mg/dL; MICROALBUM/CREATININE RATIO,UR 933.8 ug/mg (<30.0); MICROALBUMIN,URINE 42.3 mg/dL (0-300.0)
[2021-07-07 12:14] LABS: ESTIMATED AVERAGE GLUCOSE 157 mg/dL (70-100); HEMOGLOBIN A1c% 7.1 % (4.27-6.07)
== END 2021-07-07 09:50 | disposition home or self-care (01) ==
LOC: LAB 09:49
PROVIDERS: ATTEND Internal Medicine
DX: E11.22 Type 2 diabetes mellitus with diabetic chronic kidney disease (principal)
CPT/HCPCS: 36415; 80053; 82043; 82570; 83036

== ENCOUNTER 2021-07-20 10:37 | Emergency (ER) | payer MEDICARE, OTHER ==
--- NOTE | 2021-07-20 11:04 | ED Physician Documentation ---
History of Present Illness - Stated complaint Stated Complaint: SWOLLEN LEGS,FEET - Chief complaint Chief Complaint: Cardiac - Additonal information Additional information: Patient is 86-year-old male presenting to the emergency department with chief complaint of lower extremity swelling as well as requesting removal of indwelling Johnson catheter. Recently underwent transurethral resection of a bladder tumor per his history. Was instructed to follow-up with primary care today for Johnson catheter removal. Has been had increased fluid intake since the surgery. Noticed swelling down in his feet and ankles. Endorses for history of congestive heart failure and takes 40 mg Lasix daily. Spoke to his surgeon this morning and was referred to the emergency department for evaluation. Denies any chest pain, shortness of breath, cough, abdominal pain, nausea, vomiting, significant weight gain. Review of Systems Ten Systems: 10 systems reviewed and negative Constitutional: denies: Fever Eyes: denies: Loss of vision Ears: denies: Loss of hearing Nose: denies: Rhinorrhea / runny nose Throat: denies: Dental pain / toothache Cardiac: reports: Pedal edema. denies: Chest pain / pressure GI: denies: Abdominal Pain : reports: Johnson Problem PD PAST MEDICAL HISTORY - Past Medical History Cardiovascular: Congestive heart failure, Hypertension, Coronary artery disease, [place], Murmur, Valve disorder, Other Respiratory: None Endocrine/Autoimmune: Type 2 diabetes GI: None : None HEENT: Chronic vision loss, Chronic hearing loss Psych: None Musculoskeletal: Gout Derm: Other - Past Surgical History General: Colonoscopy Cardiovascular: CABG, Coronary stent, Pacemaker, AICD, Cardiac catheterization HEENT: Cataracts Derm: Skin cancer surgery - Present Medications Home Medications: Ambulatory Orders Medication Instructions Recorded Confirmed Aspirin [Adult Low Dose Aspirin EC] 81 mg PO DAILY 01/20/16 07/20/21 Carvedilol 12.5 mg PO BID 01/20/16 07/20/21 Cholecalciferol (Vitamin D3) 2,000 unit PO DAILY 01/20/16 07/20/21 [Vitamin D3] Docusate Sodium 100 mg PO DAILY PRN 01/20/16 07/20/21 Glimepiride 4 mg PO BIDWM 01/20/16 07/20/21 Losartan [Cozaar] 50 mg PO DAILY 01/20/16 07/20/21 Pravastatin Sodium [Pravachol] 40 mg PO QPM 01/20/16 07/20/21 allopurinoL [Allopurinol] 100 mg PO DAILY 01/20/16 07/20/21 Furosemide [Lasix] 20 mg PO DAILY 03/15/16 07/20/21 Multivitamin [Multiple Vitamins] 1 tab PO DAILY 03/15/16 07/20/21 Nitroglycerin [Nitrostat] 0.4 mg SL Q5M PRN 03/15/16 07/20/21 Furosemide [Lasix] 40 mg PO DAILY 4 Days #4 tablet 07/20/21 - Allergies Allergies/Adverse Reactions: Allergies Allergy/AdvReac Type Severity Reaction Status Date / Time clopidogrel bisulfate * Allergy Rash Verified 07/20/21 10:47 [From Plavix] niacin Allergy Rash Verified 07/20/21 10:47 - Social History Does the pt smoke?: No Smoking Status: Never smoker PD ED PE NORMAL - General General: Alert and oriented X 3 - HEENT HEENT: Atraumatic - Neck Neck: Supple, no meningeal sign - Cardiac Cardiac: RRR, No gallop - Respiratory Respiratory: No respiratory distress, Clear bilaterally - Abdomen Abdomen: Normal bowel sounds - Male Male : Automated Process Operator present, Other (Johnson catheter in place. There is a nominal amount of dried blood noted at the urethral meatus. No active bleeding or leakage appreciated at this time.) - Extremities Extremities: No: No edema (+1 pitting edema bilateral lower extremities.) - Neuro Neuro: Alert and oriented X 3, carrier blower 2-12 intact, No motor deficit, No sensory deficit, Other Results - Vitals Vitals: Vital Signs - 24 hr 07/20/21 07/20/21 07/20/21 10:42 11:39 13:35 Temperature 35.9 C L Heart Rate 80 58 L 74 Respiratory 24 14 20 Rate Blood Pressure 142/67 H 137/64 H 144/66 H O2 Saturation 100 100 100 Oxygen O2 Source Room air - EKG (time done) 1051 Rate: Rate (enter#) (73) Rhythm: NSR [place]: LAD Intervals: Prolonged OK, LBBB Compare to prior EKG: Changed from prior EKG (New LBBB compare with 03/14/16) - Labs Labs: Laboratory Tests 07/20/21 07/20/21 07/20/21 11:23 11:23 11:23 WBC 7.3 RBC 3.77 L Hgb 11.7 L Hct 35.2 L MCV 93.4 MCH 31.0 MCHC 33.2 RDW 13.5 Plt Count 141 MPV 10.5 Neut # (Auto) 5.3 Lymph # (Auto) 1.1 L [place] # (Auto) 0.5 Eos # (Auto) 0.4 Baso # (Auto) 0.1 Absolute Nucleated RBC 0.00 Nucleated RBC % 0.0 VBG pH VBG pCO2 VBG pO2 VBG HCO3 VBG Total CO2 VBG O2 Saturation VBG Base Excess Sodium 135 Potassium 4.5 Chloride 100 L Carbon Dioxide 25 Anion Gap 10.0 BUN 32 H Creatinine 1.4 H Estimated GFR (MDRD) 48 L Glucose 231 H Calcium 9.4 Total Bilirubin 0.7 AST 34 ALT 32 Alkaline Phosphatase 58 B-Natriuretic Peptide 1144 H Total Protein 6.8 Albumin 3.7 Globulin 3.1 Albumin/Globulin Ratio 1.2 07/20/21 11:23 WBC RBC Hgb Hct MCV MCH MCHC RDW Plt Count MPV Neut # (Auto) Lymph # (Auto) [place] # (Auto) Eos # (Auto) Baso # (Auto) Absolute Nucleated RBC Nucleated RBC % VBG pH 7.408 VBG pCO2 41.0 VBG pO2 33.0 VBG HCO3 25.3 VBG Total CO2 26.5 VBG O2 Saturation 65.6 VBG Base Excess 0.6 Sodium Potassium Chloride Carbon Dioxide Anion Gap BUN Creatinine Estimated GFR (MDRD) Glucose Calcium Total Bilirubin AST ALT Alkaline Phosphatase B-Natriuretic Peptide Total Protein Albumin Globulin Albumin/Globulin Ratio PD MEDICAL DECISION MAKING - ED course Complexity details: reviewed results, d/w patient ED course: Patient is 86-year-old male presenting to the emergency department with complaint of lower extremity edema as well as requesting removal of Johnson c atheter. Recent transurethral resection of bladder tumors. Patient reports that he contacted his urologist today and was referred to the emergency department for lower extremity swelling. Denied any chest pain, shortness of breath, heart palpitations. He did have mild lower extremity edema. Labs obtained demonstrated a chronic renal insufficiency as well as an elevated BNP. Clinically patient does not appear to be fluid overloaded and there is no respiratory distress. Ultrasonography of the bilateral lower extremities was negative for DVT. Will increase patient's Lasix for the next 4 days and have him follow-up with both urology and primary care. At his request the Johnson catheter was removed in the emergency department. He was also instructed to return for any urinary obstruction. Departure - Departure Disposition: 01 Home, Self Care Clinical Impression: Leg swelling, Encounter for Johnson catheter removal Instructions: ED Edema Legs Bilateral Prescriptions: Furosemide [Lasix] 40 mg PO DAILY 4 Days #4 tablet Comments: Thank you for allowing us to care for you today at [facility]. All the testing performed in the emergency department was very reassuring. As we discussed I had like you to double your home Lasix from 20 mg to 40 mg for the next 4 days starting tomorrow. After this had like you to resume your previous prescription for 20 mg of Lasix daily. Please make a follow-up appointment with your primary care doctor and your urologist as soon as possible. If it anytime you find yourself having any increased difficulty with urination, or if you develop any new or worsening symptoms such as worsening chest pain, shortness of breath or worsening swelling in your lower extremities please return. Discharge Date/Time: 07/20/21 14:01
[2021-07-20 11:30] LABS: BASOPHILS # (AUTO) 0.1 10^3/uL (0.0-0.1); BASOPHILS % (AUTO) 0.7 %; EOSINOPHILS # (AUTO) 0.4 10^3/uL (0.0-0.7); EOSINOPHILS % (AUTO) 5.3 %; HCT - HEMATOCRIT 35.2 % (42.0-52.0); HGB - HEMOGLOBIN 11.7 g/dL (14.0-18.0); LYMPHOCYTES # (AUTO) 1.1 10^3/uL (1.5-3.5); LYMPHOCYTES % (AUTO) 15.6 %; MEAN CORPUSCULAR HGB CONC 33.2 g/dL (32.0-36.0); MEAN CORPUSCULAR VOLUME 93.4 fL (80.0-94.0); MEAN PLATELET VOLUME 10.5 fL (7.4-11.4); MONOCYTES # (AUTO) 0.5 10^3/uL (0.0-1.0); MONOCYTES % (AUTO) 6.2 %; NEUTROPHILS # (AUTO) 5.3 10^3/uL (1.5-6.6); NEUTROPHILS % (AUTO) 71.9 %; PLT - PLATELET COUNT 141 10^3/uL (130-450); RED BLOOD COUNT 3.77 10^6/uL (4.70-6.10); RED CELL DISTRIBUTION WIDTH 13.5 % (12.0-15.0); WHITE BLOOD COUNT 7.3 x10^3/uL (4.8-10.8)
[2021-07-20 11:33] LABS: VBG HCO3 25.3 mmol/L (23-28); VBG PH 7.408 (7.31-7.41)
[2021-07-20 11:34] LABS: VBG BASE EXCESS 0.6 mmol/L (-2 - +2); VBG OXYGEN SATURATION 65.6 % (60-80); VBG TOTAL CO2 26.5 mmol/L (24-29)
[2021-07-20 11:42] LABS: ALBUMIN 3.7 g/dL (3.2-5.5); ALBUMIN/GLOBULIN RATIO 1.2 (1.0-2.2); BILIRUBIN,TOTAL 0.7 mg/dL (0.2-1.0); CALCIUM 9.4 mg/dL (8.5-10.3); CREATININE 1.4 mg/dL (0.6-1.2); POTASSIUM 4.5 mmol/L (3.5-5.0); TOTAL PROTEIN 6.8 g/dL (6.7-8.2)
[2021-07-20] MEDS ORDERED: FUROSEMIDE 40 MG/4 ML VIAL IVP STA (12:46)
[2021-07-20 13:36] VITALS: BP 144/66
--- NOTE | 2021-07-20 15:17 | Ultrasound Report ---
PROCEDURE: Duplex Ext Veins Bilateral INDICATIONS: JESUS BHANDARI TECHNIQUE: Real-time imaging, as well as color and pulse Doppler interrogation, were performed of the deep veins of both legs from the inguinal ligament to the popliteal fossa. COMPARISON: FINDINGS: The deep veins are normally compressible, and free of intraluminal thrombus. Color and pu lse Doppler demonstrate normal phasic intravascular flow. There is normal augmentation response to d istal compression maneuver. IMPRESSION: No deep vein thrombosis of the bilateral lower extremities. Reviewed by: Mi Robertson MD on 07/20/2021 3:15 PM PST Approved by: Mi Robertson MD on 07/20/2021 3:15 PM PST Station ID: [id number]
== END 2021-07-20 14:01 | disposition home or self-care (01) ==
LOC: ED 10:37
DX: R60.0 Localized edema (principal); N18.9 Chronic kidney disease, unspecified; Z96.0 Presence of urogenital implants
CPT/HCPCS: 36415; 80053; 82803; 83880; 85025; 93005; 93970; 96374; 99283

== ENCOUNTER 2021-07-28 09:52 | Outpatient (CLI) | payer MEDICARE, OTHER ==
[2021-07-28 10:28] LABS: BILIRUBIN,URINE NEGATIVE (NEGATIVE); GLUCOSE, URINE (UA) NEGATIVE (NEGATIVE); KETONES,URINE (UA) NEGATIVE (NEGATIVE); LEUKOCYTE ESTERASE, URINE SMALL (NEGATIVE); NITRITE,URINE NEGATIVE (NEGATIVE); OCCULT BLOOD,URINE LARGE (NEGATIVE); PROTEIN,URINE 100 mg/dL (NEGATIVE); UROBILINOGEN,URINE 0.2 (NORMAL) E.U./dL (NORMAL)
[2021-07-28 10:52] LABS: BACTERIA,URINE Few /HPF (None Seen); CLARITY,URINE SL. CLOUDY (CLEAR); RBC,URINE TNTC /HPF (0-5); SQUAMOUS EPITHELIAL CELL,UR NONE SEEN (<= Few)
== END 2021-07-28 09:53 | disposition home or self-care (01) ==
LOC: LAB 09:52
PROVIDERS: ATTEND Urology
DX: C67.9 Malignant neoplasm of bladder, unspecified (principal)
CPT/HCPCS: 81001; 87086

== ENCOUNTER 2021-08-06 22:30 | Emergency (ER) | payer MEDICARE, OTHER ==
--- OUTSIDE RECORDS SUMMARY | 2021-08-06 22:39 | EXTERNAL MEDICAL SUMMARY RPT | Continuity of Care Document ---
:1935 Author Organization [place] Address [address] [place] [address] Phone Allergies No information. Encounters No information. Medications No information. Problems date description facility [id number] Other specified disorders of bladder [facility] [id number] Malignant neoplasm of urinary bladder, [facility] unspecified site [C67.9] 20210802 Malignant neoplasm of overlapping sites [facility] of bladder [id number] Malignant neoplasm of bladder, [facility] unspecified [id number] Other specified disorders of bladder [facility] [id number] Malignant neoplasm of urinary bladder, [facility] unspecified site [C67.9] [id number] Malignant neoplasm of bladder, [facility] unspecified Results No information.
[2021-08-07 00:15] LABS: BASOPHILS # (AUTO) 0.1 10^3/uL (0.0-0.1); BASOPHILS % (AUTO) 0.4 %; EOSINOPHILS # (AUTO) 0.8 10^3/uL (0.0-0.7); EOSINOPHILS % (AUTO) 7.1 %; HCT - HEMATOCRIT 24.1 % (42.0-52.0); HGB - HEMOGLOBIN 7.9 g/dL (14.0-18.0); LYMPHOCYTES # (AUTO) 1.6 10^3/uL (1.5-3.5); MEAN CORPUSCULAR HGB CONC 32.8 g/dL (32.0-36.0); MEAN CORPUSCULAR VOLUME 94.5 fL (80.0-94.0); MEAN PLATELET VOLUME 11.1 fL (7.4-11.4); MONOCYTES # (AUTO) 0.9 10^3/uL (0.0-1.0); MONOCYTES % (AUTO) 7.5 %; NEUTROPHILS # (AUTO) 8.2 10^3/uL (1.5-6.6); NEUTROPHILS % (AUTO) 70.5 %; PLT - PLATELET COUNT 162 10^3/uL (130-450); RED BLOOD COUNT 2.55 10^6/uL (4.70-6.10); RED CELL DISTRIBUTION WIDTH 13.8 % (12.0-15.0); WHITE BLOOD COUNT 11.6 x10^3/uL (4.8-10.8)
--- NOTE | 2021-08-07 00:25 | ED Physician Documentation ---
PD HPI ABD PAIN - Stated complaint Stated Complaint: NO BM X 4 D; s/p bladder surgery - Chief complaint Chief Complaint: Abd Pain - History obtained from History obtained from: Patient, Family - History of Present Illness Timing - onset: How many days ago (2-3) Timing - details: Gradual onset Pain level now: 0 (denies pain, just bloating and urge to defecate) Quality: Fullness/distended Associated symptoms: Constipation. No: Fever, Nausea, Vomiting, Diarrhea, Dysuria, Dizzy Similar symptoms before: Has not had sx before Recently seen: Surgery - Additional information Additional information: discharged from [facility] yesterday after 4 day stay. He underwent TURBT 08/02, discharged 08/05. His chief complaint tonight is constipation. He says his last BM was 2-3 days ago. He feels urge to defecate and bloating but no BM. He denies any pain including abdominal pain. Johnson catheter was removed yesterday and he says he has hematuria but that he was told this was to be expected. He is using a stool softener and taking miralax. Part of his concern is that he was told to not bear down or strain to have BM. Review of Systems Constitutional: denies: Fever, Chills, Myalgias, Fatigue, Weight Loss, Sweats Cardiac: denies: Chest pain / pressure Respiratory: reports: Reviewed and negative GI: reports: Abdominal Swelling (sensation of bloating, but not visibly swollen), Constipation. denies: Abdominal Pain, Nausea, Vomiting, Diarrhea : reports: Hematuria. denies: Dysuria Musculoskeletal: denies: Back pain PD PAST MEDICAL HISTORY - Past Medical History Cardiovascular: Congestive heart failure, Hypertension, Coronary artery disease, [place], Murmur, Valve disorder, Other Respiratory: None Neuro: None Endocrine/Autoimmune: Type 2 diabetes GI: None : None HEENT: Chronic vision loss, Chronic hearing loss Psych: None Musculoskeletal: Gout Derm: Other - Past Surgical History Past Surgical History: Yes General: Colonoscopy Cardiovascular: CABG, Coronary stent, Pacemaker, AICD, Cardiac catheterization HEENT: Cataracts Derm: Skin cancer surgery - Present Medications Home Medications: Ambulatory Orders Medication Instructions Recorded Confirmed Aspirin [Adult Low Dose Aspirin EC] 81 mg PO DAILY 01/20/16 07/20/21 Carvedilol 12.5 mg PO BID 01/20/16 07/20/21 Cholecalciferol (Vitamin D3) 2,000 unit PO DAILY 01/20/16 07/20/21 [Vitamin D3] Docusate Sodium 100 mg PO DAILY PRN 01/20/16 07/20/21 Glimepiride 4 mg PO BIDWM 01/20/16 07/20/21 Pravastatin Sodium [Pravachol] 40 mg PO QPM 01/20/16 07/20/21 allopurinoL [Allopurinol] 100 mg PO DAILY 01/20/16 07/20/21 Furosemide [Lasix] 20 mg PO DAILY 03/15/16 07/20/21 Multivitamin [Multiple Vitamins] 1 tab PO DAILY 03/15/16 07/20/21 Nitroglycerin [Nitrostat] 0.4 mg SL Q5M PRN 03/15/16 07/20/21 - Allergies Allergies/Adverse Reactions: Allergies Allergy/AdvReac Type Severity Reaction Status Date / Time clopidogrel bisulfate * Allergy Rash Verified 08/06/21 22:46 [From Plavix] niacin Allergy Rash Verified 08/06/21 22:46 - Social History Does the pt smoke?: No Smoking Status: Never smoker Does the pt drink ETOH?: No Does the pt have substance abuse?: No - Immunizations Immunizations are current?: Yes PD ED PE NORMAL - Vitals Vital signs reviewed: Yes - General General: Alert and oriented X 3, No acute distress, Well developed/nourished - Cardiac Cardiac: RRR, No murmur - Respiratory Respiratory: No respiratory distress, Clear bilaterally - Abdomen Abdomen: Normal bowel sounds, Soft, Non tender, Non distended, No organomegaly - Back Back: No CVA TTP - Derm Derm: Normal color, Warm and dry - Extremities Extremities: No edema - Neuro Neuro: Alert and oriented X 3 Results - Vitals Vitals: Oxygen O2 Source Room air - Labs Labs: Laboratory Tests 08/06/21 08/06/21 00:08 00:08 WBC 11.6 H RBC 2.55 L Hgb 7.9 L Hct 24.1 L MCV 94.5 H MCH 31.0 MCHC 32.8 RDW 13.8 Plt Count 162 MPV 11.1 Neut # (Auto) 8.2 H Lymph # (Auto) 1.6 [place] # (Auto) 0.9 Eos # (Auto) 0.8 H Baso # (Auto) 0.1 Absolute Nucleated RBC 0.00 Nucleated RBC % 0.0 Sodium 128 L Potassium 5.3 H Chloride 98 L Carbon Dioxide 22 Anion Gap 8.0 BUN 46 H Creatinine 1.9 H Estimated GFR (MDRD) 34 L Glucose 170 H Calcium 8.6 Total Bilirubin 0.6 AST 34 ALT 32 Alkaline Phosphatase 53 Total Protein 6.1 L Albumin 3.1 L Globulin 3.0 Albumin/Globulin Ratio 1.0 Lipase 30 - Rads (name of study) acute abd. xrays Radiology: Prelim report reviewed, See rad report PD MEDICAL DECISION MAKING - ED course ED course: Tonights test results include: sodium 128 potassium 5.3 hemoglobin 7.9 The hyponatremia is lower than previous on [employer] records. His potassium has occasionally been mildly elevated. Most concerning is his h/h. Patient provided access to his records from . inpatient stay, and hemoglobin was 10.2 then 9.5 on 08/03, 8.7 on 08/04 and again 8.7 on 08/05. Plan was to perform plain film xrays and then I would contact his urologist to discuss the h/h to ascertain whether this is an emergent/immediate concern (vs expiditious outpatient f/u). Acute abd. xrays do not show inordinate/unusual amount of stool/gas. I reviewed this result with patient and family, but given his sensation of constipation, no BM x 3 days, and lack of findings (such as tenderness on exam or abnormal LFTs) to suggest an alternative cause, it is reasonable to try another medication with goal of BM and thus to see if this output correlates with elimination of his sensation of constipation. If not, alternative explanation(s) should be pursued. He is in NAD during ED stay and, again, entirely nontender on abdominal exam. He is given fleets enema and when I went to reevaluate him, he is dressed and standing at the doorway of his room requesting discharge. I reiterated my concern regarding his downtrend of hemoglobin (red blood cell level) and that I would like to contact his urologist before he leaves. Patient says he feels well and can contact the urology group on his own, requests discharge at this time. He is given bottle of magnesium citrate to take home to try to see if this produces BM and what effect BM has on his symptoms. Departure - Departure Disposition: 01 Home, Self Care Clinical Impression: Constipation Qualifiers: Constipation type: unspecified constipation type Qualified Code(s): K59.00 - Constipation, unspecified Anemia Qualifiers: Anemia type: unspecified type Qualified Code(s): D64.9 - Anemia, unspecified Condition: Good Instructions: ED Anemia Type Not Specified, ED Constipation Comments: As we discussed, there is not convincing evidence of constipation on tonight's xrays, but this does not "rule out" constipation. Considering that you haven't had a bowel movement in 4 days and that you have symptoms consistent with constipation, it is reasonable to try medications appropriate for constipation. Once you are passing gas and stool, if you do not experience relief of the symptoms , it would obviously call into question whether constipation is actually the problem. The lack of tenderness on exam is reassuring, and your white blood cell count is minimally elevated (and improving compared to the results of blood tests performed while you were in the hospital: these factors would suggest against a more concerning problem such as infection. You are being given medication to take once you are home (magnesium citrate). Drink half of the bottle when you get home. If you do not have result within 3-4 hours, drink the other half. I am concerned about some of your other blood tests. Your sodium was a little low (128), your potassium was a little high (5.3). These are not alarming results, however, and you can follow up with your doctor for these. Your red cell level is low (hemoglobin 7.9 , hematocrit 24.1). Even though this is unrelated to your symptoms, this result is the most concerning. You had low red blood cell levels when you were discharged from the hospital, but the level has dropped more from when you were discharged. I have offered to contact your urologist but you have indicated you would prefer discharge home at this time. Corona beard contact your urologist (or whomever is change person for the urology group that treated you) and tell them the results (the hemoglobin and hematocrit) so they can advise you further regarding follow up Discharge Date/Time: 08/07/21 04:00
[2021-08-07 00:28] LABS: ALBUMIN 3.1 g/dL (3.2-5.5); BILIRUBIN,TOTAL 0.6 mg/dL (0.2-1.0); CALCIUM 8.6 mg/dL (8.5-10.3); CREATININE 1.9 mg/dL (0.6-1.2); POTASSIUM 5.3 mmol/L (3.5-5.0); TOTAL PROTEIN 6.1 g/dL (6.7-8.2)
--- NOTE | 2021-08-07 01:11 | XRAY Report ---
PROCEDURE: Abdomen Acute INDICATIONS: abd. pain, obstipation TECHNIQUE: One view chest and two views of the abdomen were acquired. COMPARISON: 2 view chest 03/29/2018. FINDINGS: Surgical changes and devices: Left chest wall cardiac pacer. Status post CABG procedure.. Chest: Lungs are clear. Heart size is normal. No pleural effusions. No pneumoperitoneum. Abdomen: Bowel gas pattern is nonspecific. No suspicious calcifications. Visualized solid organ con tours appear normal. Bones: No suspicious bony lesions. IMPRESSION: Nonspecific bowel gas pattern without evidence of obstruction. No significant fecal loading involving the colon. Reviewed by: Marlena Castanon MD, PhD on 08/07/2021 1:09 AM PDT Approved by: Marlena Castanon MD, PhD on 08/07/2021 1:09 AM PDT Station ID: [id number]
[2021-08-07] MEDS ORDERED: SALINE ENEMA 133 ML BOTTLE RC STA (02:48)
[2021-08-07] MEDS ORDERED: MAGNESIUM CITRATE 296 ML BOTTLE PO STA (05:00)
[2021-08-07 05:10] VITALS: BP 134/78
== END 2021-08-07 04:00 | disposition home or self-care (01) ==
LOC: ED 22:30
DX: K91.89 Other postprocedural complications and disorders of digestive system (principal); K59.00 Constipation, unspecified; I11.0 Hypertensive heart disease with heart failure; I50.9 Heart failure, unspecified; Z95.1 Presence of aortocoronary bypass graft; Z95.0 Presence of cardiac pacemaker
CPT/HCPCS: 36415; 74022; 80053; 83690; 85025; 99284; A9270

== ENCOUNTER 2021-08-10 10:52 | Outpatient (CLI) | payer MEDICARE, OTHER ==
[2021-08-10 11:19] LABS: CALCIUM 8.5 mg/dL (8.5-10.3); POTASSIUM 5.1 mmol/L (3.5-5.0)
[2021-08-10 11:40] LABS: BILIRUBIN,URINE NEGATIVE (NEGATIVE); GLUCOSE, URINE (UA) NEGATIVE (NEGATIVE); KETONES,URINE (UA) NEGATIVE (NEGATIVE); LEUKOCYTE ESTERASE, URINE MODERATE (NEGATIVE); NITRITE,URINE NEGATIVE (NEGATIVE); OCCULT BLOOD,URINE LARGE (NEGATIVE); PH,URINE 5.5 PH (5.0-7.5); PROTEIN,URINE 100 mg/dL (NEGATIVE); UROBILINOGEN,URINE 0.2 (NORMAL) E.U./dL (NORMAL)
[2021-08-10 11:41] LABS: CLARITY,URINE CLOUDY (CLEAR)
[2021-08-10 11:48] LABS: BACTERIA,URINE Rare /HPF (None Seen); RBC,URINE TNTC /HPF (0-5); SQUAMOUS EPITHELIAL CELL,UR NONE SEEN (<= Few); WBC,URINE >25 /HPF (0-3)
== END 2021-08-10 10:53 | disposition home or self-care (01) ==
LOC: LAB 10:52
PROVIDERS: ATTEND Urology
DX: I25.5 Ischemic cardiomyopathy (principal); R35.0 Frequency of micturition
CPT/HCPCS: 36415; 80048; 81001; 87077; 87086; 87181

== ENCOUNTER 2021-08-11 12:32 | Emergency (ER) | payer MEDICARE, OTHER ==
--- OUTSIDE RECORDS SUMMARY | 2021-08-11 12:54 | EXTERNAL MEDICAL SUMMARY RPT | Continuity of Care Document ---
:1935 Author Organization [place] Address [address] [place] [address] Phone Allergies No information. Encounters No information. [...]
[2021-08-11] MEDS ORDERED: SODIUM CHLORIDE 0.9% 1,000 ML IV STA (13:00)
[2021-08-11 13:22] LABS: BASOPHILS # (AUTO) 0.1 10^3/uL (0.0-0.1); BASOPHILS % (AUTO) 0.4 %; EOSINOPHILS # (AUTO) 0.4 10^3/uL (0.0-0.7); EOSINOPHILS % (AUTO) 3.6 %; HCT - HEMATOCRIT 24.2 % (42.0-52.0); LYMPHOCYTES # (AUTO) 0.9 10^3/uL (1.5-3.5); LYMPHOCYTES % (AUTO) 7.7 %; MEAN CORPUSCULAR HEMOGLOBIN 30.9 pg (27.0-31.0); MEAN CORPUSCULAR HGB CONC 33.1 g/dL (32.0-36.0); MEAN CORPUSCULAR VOLUME 93.4 fL (80.0-94.0); MEAN PLATELET VOLUME 10.7 fL (7.4-11.4); MONOCYTES # (AUTO) 0.7 10^3/uL (0.0-1.0); NEUTROPHILS # (AUTO) 9.6 10^3/uL (1.5-6.6); NEUTROPHILS % (AUTO) 81.2 %; PLT - PLATELET COUNT 283 10^3/uL (130-450); RED BLOOD COUNT 2.59 10^6/uL (4.70-6.10); RED CELL DISTRIBUTION WIDTH 13.8 % (12.0-15.0); WHITE BLOOD COUNT 11.8 x10^3/uL (4.8-10.8)
[2021-08-11 13:23] LABS: BILIRUBIN,URINE NEGATIVE (NEGATIVE); GLUCOSE, URINE (UA) NEGATIVE (NEGATIVE); KETONES,URINE (UA) NEGATIVE (NEGATIVE); LEUKOCYTE ESTERASE, URINE MODERATE (NEGATIVE); NITRITE,URINE NEGATIVE (NEGATIVE); OCCULT BLOOD,URINE LARGE (NEGATIVE); PH,URINE 5.5 PH (5.0-7.5); PROTEIN,URINE 30 mg/dL (NEGATIVE); UROBILINOGEN,URINE 0.2 (NORMAL) E.U./dL (NORMAL)
[2021-08-11 13:24] LABS: CLARITY,URINE SL. CLOUDY (CLEAR)
[2021-08-11 13:31] LABS: RBC,URINE 0-5 /HPF (0-5); SQUAMOUS EPITHELIAL CELL,UR FEW Squamous (<= Few); WBC CLUMPS,URINE PRESENT; WBC,URINE >25 /HPF (0-3)
[2021-08-11 13:32] LABS: BACTERIA,URINE Few /HPF (None Seen)
[2021-08-11 13:36] LABS: ALBUMIN 3.4 g/dL (3.2-5.5); BILIRUBIN,TOTAL 0.5 mg/dL (0.2-1.0); CALCIUM 8.8 mg/dL (8.5-10.3); CREATININE 2.8 mg/dL (0.6-1.2); POTASSIUM 4.3 mmol/L (3.5-5.0); TOTAL PROTEIN 6.8 g/dL (6.7-8.2)
--- NOTE | 2021-08-11 15:27 | CT Report ---
PROCEDURE: Abdomen/Pelvis WO INDICATIONS: elevated creatinine s/p bladder cancer surgery TECHNIQUE: Noncontrast 5 mm thick sections acquired from the diaphragms to the symphysis. 5 mm coronal and sagi ttal reformats were then performed. For radiation dose reduction, the following was used: automated exposure control, adjustment of mA and/or kV according to patient size. COMPARISON: CT IVP 12 FINDINGS: Image quality: Excellent. ABDOMEN: Lung bases: Very small bilateral pleural effusions, right greater than left with associated compressi ve atelectatic changes. Mild cardiomegaly with postoperative changes and ICD lead in place. Tiny hiat al hernia. Kidneys and ureters: The left kidney demonstrates moderate hydronephrosis, parapelvic edema and mild perinephric inflammation. There is mild right hydronephrosis. Mild to moderate bilateral hydroureter, left greater than right. No ureteral calcifications. Small exophytic cyst arising from the left kidn ey. Other solid organs: The liver and spleen are normal size. No adrenal masses. The pancreas is diminuti ve. The gallbladder contains a few granular size calcifications layering dependently. No biliary dila tation. Peritoneum and bowel: Unenhanced bowel loops demonstrate normal wall thickness and caliber. No free fluid or air. Nodes and vessels: No retroperitoneal or mesenteric adenopathy by size criteria. Aorta and inferior vena cava are normal in caliber. Moderate aortic calcification. Miscellaneous: No ventral hernias. PELVIS: Genitourinary: The urinary bladder demonstrates an air-fluid level anteriorly. No visible polypoid ma sses are seen as were present previously. There is probably mild residual scattered wall thickening a long the right wall of the urinary bladder. Mild generalized perivesicular inflammation. The prostate gland is normal size. Miscellaneous: Tiny fat-containing bilateral inguinal hernias. No pelvic adenopathy. No suspicious pe lvic mass. Bones: No suspicious bony lesions. No vertebral body compression fractures. IMPRESSION: 1. Development of moderate left-sided and mild right-sided hydroureteronephrosis. There is left-sided perinephric inflammation. No obstructing calcifications are seen and this may be secondary to postsu rgical inflammation at the UVJ, blood clot, or stricture. 2. Interval resection of many intraluminal bladder masses. There may be some residual wall thickening along the right wall. 3. Cardiomegaly and very small bilateral pleural effusions. Reviewed by: Farzana Esquivel MD on 08/11/2021 3:26 PM PDT Approved by: Farzana Esquivel MD on 08/11/2021 3:26 PM PDT Station ID: [id number]
--- NOTE | 2021-08-11 15:49 | ED Physician Documentation ---
History of Present Illness - Stated complaint Stated Complaint: SENT BY DOC - Chief complaint Chief Complaint: General - History obtained from History obtained from: Patient - History of Present Illness Timing: Today Pain level max: 0 Pain level now: 0 - Additonal information Additional information: Patient is an 86-year-old male who was brought into the emergency department for increased creatinine on outpatient blood draw today. He had surgery at the [facility] 1 week ago for bladder cancer. His urologist told him to come into the emergency department for repeat evaluation. He recently had his Lasix doubled about 3 days ago. Patient is asymptomatic. No abdominal pain, no back pain. No fevers. Nothing makes it better or worse Review of Systems Ten Systems: 10 systems reviewed and negative Constitutional: denies: Fever, Chills Ears: denies: Ear pain Nose: denies: Rhinorrhea / runny nose, Congestion Respiratory: denies: Cough GI: denies: Abdominal Pain, Nausea, Vomiting, Diarrhea : denies: Dysuria, Frequency, Hesitancy Skin: denies: Rash Musculoskeletal: denies: Neck pain, Back pain PD PAST MEDICAL HISTORY - Past Medical History Cardiovascular: Congestive heart failure, Hypertension, Coronary artery disease, SC, Murmur, Valve disorder, Other Respiratory: None Neuro: None Endocrine/Autoimmune: Type 2 diabetes GI: None : None HEENT: Chronic vision loss, Chronic hearing loss Psych: None Musculoskeletal: Gout Derm: Other - Past Surgical History Past Surgical History: Yes General: Colonoscopy Cardiovascular: CABG, Coronary stent, Pacemaker, AICD, Cardiac catheterization HEENT: Cataracts Derm: Skin cancer surgery - Present Medications Home Medications: Ambulatory Orders Medication Instructions Recorded Confirmed Aspirin [Adult Low Dose Aspirin EC] 81 mg PO DAILY 01/20/16 07/20/21 Carvedilol 12.5 mg PO BID 01/20/16 07/20/21 Cholecalciferol (Vitamin D3) 2,000 unit PO DAILY 01/20/16 07/20/21 [Vitamin D3] Docusate Sodium 100 mg PO DAILY PRN 01/20/16 07/20/21 Glimepiride 4 mg PO BIDWM 01/20/16 07/20/21 Pravastatin Sodium [Pravachol] 40 mg PO QPM 01/20/16 07/20/21 allopurinoL [Allopurinol] 100 mg PO DAILY 01/20/16 07/20/21 Furosemide [Lasix] 20 mg PO DAILY 03/15/16 07/20/21 Multivitamin [Multiple Vitamins] 1 tab PO DAILY 03/15/16 07/20/21 Nitroglycerin [Nitrostat] 0.4 mg SL Q5M PRN 03/15/16 07/20/21 - Allergies Allergies/Adverse Reactions: Allergies Allergy/AdvReac Type Severity Reaction Status Date / Time clopidogrel bisulfate * Allergy Rash Verified 08/06/21 22:46 [From Plavix] niacin Allergy Rash Verified 08/06/21 22:46 - Social History Does the pt smoke?: No Smoking Status: Never smoker Does the pt drink ETOH?: No Does the pt have substance abuse?: No - Immunizations Immunizations are current?: Yes PD ED PE NORMAL - Vitals Vital signs reviewed: Yes - General General: Alert and oriented X 3, No acute distress - HEENT HEENT: Moist mucous membranes - Neck Neck: Supple, no meningeal sign - Cardiac Cardiac: RRR, Strong equal pulses - Respiratory Respiratory: No respiratory distress, Clear bilaterally - Abdomen Abdomen: Soft, Non tender, Non distended - Back Back: No CVA TTP, No spinal TTP - Derm Derm: Warm and dry - Extremities Extremities: No edema - Neuro Neuro: Alert and oriented X 3 - Psych Psych: Normal mood, Normal affect Results - Vitals Vitals: Vital Signs - 24 hr 08/11/21 08/11/21 08/11/21 12:38 16:04 17:34 Temperature 36.2 C L 36.8 C Heart Rate 87 81 80 Respiratory 14 18 18 Rate Blood Pressure 120/52 L 110/59 L 110/66 O2 Saturation 98 94 100 Oxygen O2 Source Room air - Labs Labs: Laboratory Tests 08/11/21 08/11/21 08/11/21 13:17 13:17 13:17 WBC 11.8 H RBC 2.59 L Hgb 8.0 L Hct 24.2 L MCV 93.4 MCH 30.9 MCHC 33.1 RDW 13.8 Plt Count 283 MPV 10.7 Neut # (Auto) 9.6 H Lymph # (Auto) 0.9 L [place] # (Auto) 0.7 Eos # (Auto) 0.4 Baso # (Auto) 0.1 Absolute Nucleated RBC 0.00 Nucleated RBC % 0.0 Sodium 128 L Potassium 4.3 Chloride 93 L Carbon Dioxide 21 Anion Gap 14.0 H BUN 77 H Creatinine 2.8 H Estimated GFR (MDRD) 22 L Glucose 201 H Calcium 8.8 Total Bilirubin 0.5 AST 79 H ALT 102 H Alkaline Phosphatase 82 Total Protein 6.8 Albumin 3.4 Globulin 3.4 Albumin/Globulin Ratio 1.0 Lipase 33 Urine Color YELLOW Urine Clarity SL. CLOUDY Urine pH 5.5 Ur Specific Allen 1.010 Urine Protein 30 H Urine Glucose (UA) NEGATIVE Urine Ketones NEGATIVE Urine Occult Blood LARGE H Urine Nitrite NEGATIVE Urine Bilirubin NEGATIVE Urine Urobilinogen 0.2 (NORMAL) Ur Leukocyte Esterase MODERATE H Urine RBC 0-5 Urine WBC >25 H Urine WBC Clumps PRESENT Ur Squamous Epith Cells FEW Squamous Urine Bacteria Few Ur Microscopic Review INDICATED Urine Culture Comments INDICATED Nasal Adenovirus (PCR) Nasal B. parapertussis DNA (PCR) Nasal Coronavir 229E PCR Nasal Coronavir HKU1 PCR Nasal Coronavir NL63 PCR Nasal Coronavir OC43 PCR Nasal Enterovir/Rhinovir PCR Nasal Influenza B PCR Nasal Influenza A PCR Nasal Parainfluen 1 PCR Nasal Parainfluen 2 PCR Nasal Parainfluen 3 PCR Nasal Parainfluen 4 PCR Nasal RSV (PCR) Nasal B.pertussis DNA PCR Nasal C.pneumoniae (PCR) Matthew Human Metapneumo PCR Nasal M.pneumoniae (PCR) Nasal SARS-CoV-2 (PCR) 08/11/21 15:55 WBC RBC Hgb Hct MCV MCH MCHC RDW Plt Count MPV Neut # (Auto) Lymph # (Auto) [place] # (Auto) Eos # (Auto) Baso # (Auto) Absolute Nucleated RBC Nucleated RBC % Sodium Potassium Chloride Carbon Dioxide Anion Gap BUN Creatinine Estimated GFR (MDRD) Glucose Calcium Total Bilirubin AST ALT Alkaline Phosphatase Total Protein Albumin Globulin Albumin/Globulin Ratio Lipase Urine Color Urine Clarity Urine pH Ur Specific Allen Urine Protein Urine Glucose (UA) Urine Ketones Urine Occult Blood Urine Nitrite Urine Bilirubin Urine Urobilinogen Ur Leukocyte Esterase Urine RBC Urine WBC Urine WBC Clumps Ur Squamous Epith Cells Urine Bacteria Ur Microscopic Review Urine Culture Comments Nasal Adenovirus (PCR) NOT DETECTED Nasal B. parapertussis DNA (PCR) NOT DETECTED Nasal Coronavir 229E PCR NOT DETECTED Nasal Coronavir HKU1 PCR NOT DETECTED Nasal Coronavir NL63 PCR NOT DETECTED Nasal Coronavir OC43 PCR NOT DETECTED Nasal Enterovir/Rhinovir PCR NOT DETECTED Nasal Influenza B PCR NOT DETECTED Nasal Influenza A PCR NOT DETECTED Nasal Parainfluen 1 PCR NOT DETECTED Nasal Parainfluen 2 PCR NOT DETECTED Nasal Parainfluen 3 PCR NOT DETECTED Nasal Parainfluen 4 PCR NOT DETECTED Nasal RSV (PCR) NOT DETECTED Nasal B.pertussis DNA PCR NOT DETECTED Nasal C.pneumoniae (PCR) NOT DETECTED Matthew Human Metapneumo PCR NOT DETECTED Nasal M.pneumoniae (PCR) NOT DETECTED Nasal SARS-CoV-2 (PCR) NOT DETECTED - Rads (name of study) CT abdomen pelvis Radiology: Final report received, EMP read contemporaneously, See rad report PD MEDICAL DECISION MAKING - ED course Complexity details: reviewed results, re-evaluated patient, considered differential, d/w patient, d/w business analyst consultant ED course: Patient is an 86-year-old male with acute renal insufficiency. Possibly related to increased Lasix recently. Was given IV fluids for possible overdiuresis. Also mild hyponatremia. Patient is fully asymptomatic here. Discussed the case with his urologist, Dr. Luu @ he requests a CT scan to evaluate for hydronephrosis. The patient does have moderate left-sided hydroureteronephrosis. Also has mild right-sided hydronephrosis. His urologist recommends interventional radiology for nephrostomy tube. We do not have interventional radiology here that can perform this procedure. We attempted to transfer to the [facility], emergency department, but IR is unable to do a drain tonight. The patient is comfortable going home tonight with his , they will drive him to the [facility] in the morning and have the nephrostomy tube performed at that time. The plan was discussed with the patient's urologist who agrees with the plan. I did offer the patient and his to stay in the emergency department tonight and to be transferred by ambulance in the morning, however they prefer to go home tonight and their son will take him tomorrow Patient and family counseled regarding signs and symptoms for which I believe and urgent re-evaluation would be necessary. Patient with good understanding of and agreement to plan and is comfortable going home at this time This document was made in part using voice recognition software. While efforts are made to proofread this document, sound alike and grammatical errors may occur. IMPRESSION: 1. Development of moderate left-sided and mild right-sided hydroureteroneph rosis. There is left- sided perinephric inflammation. No obstructing calcifications are seen and this may be secondary to postsurgical inflammation at the UVJ, blood clot, or stricture. 2. Interval resection of many intraluminal bladder masses. There may be some residual wall thickening along the right wall. 3. Cardiomegaly and very small bilateral pleural effusions. Departure - Departure Disposition: 01 Home, Self Care Clinical Impression: Acute renal insufficiency Hydronephrosis Qualifiers: Hydronephrosis type: unspecified Qualified Code(s): N13.30 - Unspecified hydronephrosis Anemia Qualifiers: Anemia type: unspecified type Qualified Code(s): D64.9 - Anemia, unspecified Condition: Stable Instructions: ED Insufficiency Renal Follow-Up: your,doctor tomorrow [Other] Comments: I spoke with your urologist today, Dr. Brooks. He wants you to go to the [facility] emergency department tomorrow so that they can perform a nephrostomy tube. Discharge Date/Time: 08/11/21 17:36
[2021-08-11 16:53] LABS: CORONAVIRUS 229E-RESP PCR NOT DETECTED
[2021-08-11 16:54] LABS: B. PARAPERTUSSIS- RESP PCR PAN NOT DETECTED; B. PERTUSSIS- RESP PCR PANEL NOT DETECTED; C. PNEUMONIAE- RESP PCR PANEL NOT DETECTED; CORONAVIRUS HKU1-RESP PCR NOT DETECTED; CORONAVIRUS NL63-RESP PCR NOT DETECTED; CORONAVIRUS OC43-RESP PCR NOT DETECTED; HUMAN METAPNEUMOVIRUS NOT DETECTED; INFLUENZA A- RESP PCR PANEL NOT DETECTED; INFLUENZA B - RESP PCR PANEL NOT DETECTED; M. PNEUMONIAE- RESP PCR PANEL NOT DETECTED; PARAINFLUENZA VIRUS 1 NOT DETECTED; PARAINFLUENZA VIRUS 2 NOT DETECTED; PARAINFLUENZA VIRUS 3 NOT DETECTED; PARAINFLUENZA VIRUS 4 NOT DETECTED; RHINOVIRUS/ENTEROVIRUS NOT DETECTED; RSV- RESP PCR PANEL NOT DETECTED; SARS-CoV-2 -RESP PCR PANEL NOT DETECTED
[2021-08-11 17:36] VITALS: BP 110/66
== END 2021-08-11 17:36 | disposition home or self-care (01) ==
LOC: ED 12:32
DX: N28.9 Disorder of kidney and ureter, unspecified (principal); E87.1 Hypo-osmolality and hyponatremia; N13.30 Unspecified hydronephrosis; D64.9 Anemia, unspecified; Z20.822 Contact with and (suspected) exposure to COVID-19
CPT/HCPCS: 0202U; 36415; 80053; 81001; 81003; 83690; 85025; 87077; 87086; 87181; 96360; 99283

== ENCOUNTER 2021-08-21 12:43 | Emergency (ER) | payer MEDICARE, OTHER ==
--- OUTSIDE RECORDS SUMMARY | 2021-08-21 12:59 | EXTERNAL MEDICAL SUMMARY RPT | Continuity of Care Document ---
:1935 Author Organization [facility] Address [address] [place] [address] Phone Allergies No information. Encounters No information. Medications No information. Problems date description facility [id number] not feeling well from past procedure [facility] [id number] General Illness [facility] [id number] Other specified disorders of bladder [facility] [id number] Malignant neoplasm of urinary bladder, [facility] unspecified site [C67.9] 20210802 Malignant neoplasm of overlapping sites [facility] of bladder [id number] Malignant neoplasm of bladder, [facility] unspecified [id number] Other specified disorders of bladder [facility] [id number] Malignant neoplasm of urinary bladder, [facility] unspecified site [C67.9] [id number] Malignant neoplasm of bladder, [facility] unspecified Results No information.
[2021-08-21 13:18] LABS: BASOPHILS # (AUTO) 0.1 10^3/uL (0.0-0.1); BASOPHILS % (AUTO) 0.7 %; EOSINOPHILS # (AUTO) 0.3 10^3/uL (0.0-0.7); EOSINOPHILS % (AUTO) 3.4 %; HCT - HEMATOCRIT 32.3 % (42.0-52.0); HGB - HEMOGLOBIN 10.1 g/dL (14.0-18.0); LYMPHOCYTES # (AUTO) 1.4 10^3/uL (1.5-3.5); MEAN CORPUSCULAR HEMOGLOBIN 29.5 pg (27.0-31.0); MEAN CORPUSCULAR HGB CONC 31.3 g/dL (32.0-36.0); MEAN CORPUSCULAR VOLUME 94.4 fL (80.0-94.0); MEAN PLATELET VOLUME 9.8 fL (7.4-11.4); MONOCYTES # (AUTO) 0.5 10^3/uL (0.0-1.0); NEUTROPHILS # (AUTO) 7.1 10^3/uL (1.5-6.6); NEUTROPHILS % (AUTO) 75.4 %; NRBC ABSOLUTE COUNT (AUTO) 0.03 x10^3/uL; NUCLEATED RED BLOOD CELLS AUTO 0.3 /100WBC; PLT - PLATELET COUNT 385 10^3/uL (130-450); RED BLOOD COUNT 3.42 10^6/uL (4.70-6.10); RED CELL DISTRIBUTION WIDTH 15.6 % (12.0-15.0); WHITE BLOOD COUNT 9.4 x10^3/uL (4.8-10.8)
--- NOTE | 2021-08-21 13:28 | ED Physician Documentation ---
History of Present Illness - Stated complaint Stated Complaint: SOA,COUGH,NOT URINATING - Chief complaint Chief Complaint: Resp - Additonal information Additional information: 86-year-old male presents emergency department for inability to urinate as well as 3 days worsening shortness of air. This is a gentleman that underwent surgery on 02 August at [facility] for bladder cancer. His postoperative course was complicated by acute renal insufficiency. They thought at the time it was likely related to increased Lasix consumption. He presented to this emergency department on the to evaluate for possible hydronephro sis. The CT scan at that time showed moderate left-sided hydroureter nephrosis as well is more right-sided hydronephrosis. The patient ultimately went to [facility] on the where he received bilateral ureter stenting as well as nephrostomy tubes. This was done under the direction of Dr. Luu. The directions to the were that he was to keep the urostomy/nephrostomy tubes draining until it was free of blood. That occurred this morning. At about 9 AM his nephrostomy tubes were capped. He was to see if he could urinate. He has not urinated. Patient is currently on day 7 of 10 of ampicillin. This antibiotic was started by [facility] He is also reporting 3 days of increased shortness of air as well as increased lower extremity edema despite doubling his Lasix. There have been no fevers. He does have a mild cough. No chest pain. No nausea or vomiting. denies abdominal pain Review of Systems Constitutional: denies: Fever, Chills Eyes: reports: Reviewed and negative Nose: reports: Reviewed and negative Throat: reports: Reviewed and negative Cardiac: reports: Reviewed and negative Respiratory: reports: Dyspnea, Cough GI: denies: Abdominal Pain : reports: Other (Bilateral nephrostomy tubes currently capped.) Skin: reports: Reviewed and negative Musculoskeletal: reports: Reviewed and negative Neurologic: reports: Reviewed and negative PD PAST MEDICAL HISTORY - Past Medical History Cardiovascular: Congestive heart failure, Hypertension, Coronary artery disease, LA, Murmur, Valve disorder, Other Respiratory: None Neuro: None Endocrine/Autoimmune: Type 2 diabetes GI: None : None HEENT: Chronic vision loss, Chronic hearing loss Psych: None Musculoskeletal: Gout Derm: Other - Past Surgical History Past Surgical History: Yes General: Colonoscopy Cardiovascular: CABG, Coronary stent, Pacemaker, AICD, Cardiac catheterization HEENT: Cataracts Derm: Skin cancer surgery - Present Medications Home Medications: Ambulatory Orders Medication Instructions Recorded Confirmed Aspirin [Adult Low Dose Aspirin EC] 81 mg PO DAILY 01/20/16 07/20/21 Carvedilol 12.5 mg PO BID 01/20/16 07/20/21 Cholecalciferol (Vitamin D3) 2,000 unit PO DAILY 01/20/16 07/20/21 [Vitamin D3] Docusate Sodium 100 mg PO DAILY PRN 01/20/16 07/20/21 Glimepiride 4 mg PO BIDWM 01/20/16 07/20/21 Pravastatin Sodium [Pravachol] 40 mg PO QPM 01/20/16 07/20/21 allopurinoL [Allopurinol] 100 mg PO DAILY 01/20/16 07/20/21 Furosemide [Lasix] 20 mg PO DAILY 03/15/16 07/20/21 Multivitamin [Multiple Vitamins] 1 tab PO DAILY 03/15/16 07/20/21 Nitroglycerin [Nitrostat] 0.4 mg SL Q5M PRN 03/15/16 07/20/21 - Allergies Allergies/Adverse Reactions: Allergies Allergy/AdvReac Type Severity Reaction Status Date / Time clopidogrel bisulfate * Allergy Rash Verified 08/21/21 12:51 [From Plavix] niacin Allergy Rash Verified 08/21/21 12:51 - Social History Does the pt smoke?: No Smoking Status: Never smoker Does the pt drink ETOH?: No Does the pt have substance abuse?: No - Immunizations Immunizations are current?: Yes PD ED PE EXPANDED - General General: Alert, Other (Thin elderly male) - Neck Neck: Supple w/out meningeal sx. No: Adenopathy - Cardiac Cardiac: Regular Rate, Normal pulses, Radial strong equal, Pedal strong equal, Cap refill < 2 sec. No: Murmur Present - Respiratory Respiratory: Clear to ausultation don. No: Distress, Labored - Abdomen Abdomen: Normal Bowel sounds. No: Tender to palpation - Derm Derm: Normal color, Warm and dry. No: Rash - Extremities Extremities: Normal, Pedal edema bilateral ( 2+ pitting edema bilateral lower extremities to mid calf.), Pedal Pulses Present. No: Deformity, Tenderness - Neuro Neuro: Alert and Oriented X 3, CNII-XII intact - GCS Eye Opening: Spontaneous Motor: Obeys Commands Verbal: Oriented Total: 15 Results - Vitals Vitals: Vital Signs - 24 hr 08/21/21 12:51 Temperature 36.4 C L Heart Rate 96 Respiratory 24 Rate Blood Pressure 119/67 O2 Saturation 99 Oxygen O2 Source Room air - EKG (time done) 1315 Rate: Rate (enter#) (93) Rhythm: NSR [place]: Other Intervals: LBBB QRS: Normal Ischemia: Other Compare to prior EKG: Unchanged from prior EKG Computer interpretation: Agree with computer - Labs Labs: Laboratory Tests 08/21/21 08/21/21 08/21/21 13:08 13:08 13:08 WBC 9.4 RBC 3.42 L Hgb 10.1 L Hct 32.3 L MCV 94.4 H MCH 29.5 MCHC 31.3 L RDW 15.6 H Plt Count 385 MPV 9.8 Neut # (Auto) 7.1 H Lymph # (Auto) 1.4 L [place] # (Auto) 0.5 Eos # (Auto) 0.3 Baso # (Auto) 0.1 Absolute Nucleated RBC 0.03 Nucleated RBC % 0.3 Sodium 133 L Potassium 4.8 Chloride 98 L Carbon Dioxide 21 Anion Gap 14.0 H BUN 57 H Creatinine 2.0 H Estimated GFR (MDRD) 32 L Glucose 144 H Calcium 10.6 H Total Bilirubin 0.5 AST 26 ALT 26 Alkaline Phosphatase 64 Troponin I High Sens 59.0 H* B-Natriuretic Peptide Total Protein 7.3 Albumin 3.4 Globulin 3.9 Albumin/Globulin Ratio 0.9 L Lipase 34 Urine Color Urine Clarity Urine pH Ur Specific [place] Urine Protein Urine Glucose (UA) Urine Ketones Urine Occult Blood Urine Nitrite Urine Bilirubin Urine Urobilinogen Ur Leukocyte Esterase Urine RBC Urine WBC Urine WBC Clumps Ur Squamous Epith Cells Urine Bacteria Ur Microscopic Review Urine Culture Comments 08/21/21 08/21/21 13:08 13:54 WBC RBC Hgb Hct MCV MCH MCHC RDW Plt Count MPV Neut # (Auto) Lymph # (Auto) [place] # (Auto) Eos # (Auto) Baso # (Auto) Absolute Nucleated RBC Nucleated RBC % Sodium Potassium Chloride Carbon Dioxide Anion Gap BUN Creatinine Estimated GFR (MDRD) Glucose Calcium Total Bilirubin AST ALT Alkaline Phosphatase Troponin I High Sens B-Natriuretic Peptide 4763 H Total Protein Albumin Globulin Albumin/Globulin Ratio Lipase Urine Color YELLOW Urine Clarity HAZY Urine pH 6.0 Ur Specific [place] 1.020 Urine Protein 100 H Urine Glucose (UA) NEGATIVE Urine Ketones NEGATIVE Urine Occult Blood LARGE H Urine Nitrite NEGATIVE Urine Bilirubin NEGATIVE Urine Urobilinogen 0.2 (NORMAL) Ur Leukocyte Esterase LARGE H Urine RBC 11-25 H Urine WBC >25 H Urine WBC Clumps PRESENT Ur Squamous Epith Cells RARE Squamous Urine Bacteria Moderate H Ur Microscopic Review INDICATED Urine Culture Comments INDICATED - Rads (name of study) CXR Radiology: Final report received (Cardiomegaly and mild vascular congestion. Defibrillator. 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 His capped his nephrostomy tubes this morning at home as she was of the understanding that once his urine was draining clear they could be capped. They were capped at 9 AM and patient presented here up approximately 1 PM. He had not yet voided. Patient and also report that his anode adjuster Dr. Barr yesterday increased his Lasix from 20 mg daily to 40 mg daily due to increasing lower extremity edema. Today patient screening chest x-ray does show some mild vascular congestion but nothing significant of severe volume overload. He is without respiratory distress or hypoxia. Screening labs do show improved renal function from most recent visit. However his BNP is markedly elevated at greater than 4000. Given that his Lasix dosing was increased yesterday and that he has no significant signs of severe heart failure or hypoxia will defer further treatment of the shortness of air as I expect the Lasix to begin to work over the next few days. Patient is noted to have a troponin of 60. His EKG is unchanged and shows a left bundle branch block. I suspect that this is a troponin leak in the setting of heart failure with a BNP of more than 4000. The patient and his have very close follow-up with Dr. Kennedy. ED bladder scan reveals approximately 120 mils of urine in the bladder. pt was able to self void about 60 ml. Urinalysis today is again suggestive of infection. However the patient is currently on day 7 of 10 of ampicillin. Recent urine culture showed a pansensitive Enterococcus. Will defer a change in antibiotics unless culture significantly different. Patient is free of leukocytosis fevers or abdominal pain. I did speak with the patient's urologist Dr. Luu. Despite improved renal function from recent, he is concerned about the known hydroureter nephrosis and does not want the nephrostomy tubes capped. He request that the patient and his reconnect the tubes when they are discharged. Unfortunately [place] does not have nephrostomy tube devices or bags here. The reports that she has the appropriate equipment at home. Patient will continue to follow-up with appropriate urology and cardiology. Emergent worrisome return precautions were discussed. Departure - Departure Disposition: Home, Self Care Clinical Impression: Hydronephrosis Qualifiers: Hydronephrosis type: other Qualified Code(s): N13.39 - Other hydronephrosis CKD (chronic kidney disease) stage 3, GFR 30-59 ml/min Qualifiers: Chronic kidney disease stage 3 subtype: stage 3b (GFR 30-44) Qualified Code(s): N18.32 - Chronic kidney disease, stage 3b CHF (congestive heart failure) Qualifiers: Heart failure type: unspecified Heart failure chronicity: acute on chronic Qualified Code(s): I50.9 - Heart failure, unspecified Condition: Stable Record reviewed to determine appropriate education?: Yes Follow-Up: Brandon Kennedy MD [Physician No Access] - LEX LUU MD [Physician No Access] - Comments: Humble galindo are seen today for 3 days of worsening shortness of breath and lower extremity edema. Your kidney function is improved from your most recent visit. Your chest x-ray does not show signs of significant volume overload. Your primary anode adjuster Dr. Kennedy increased your Lasix yesterday to 40 mg daily. I expect that this will help reduce the lower extremity edema and her shortness of breath over the next few days. I encourage you to be in very close contact with Dr. Yajaira patrick to ensure that the Lasix is not making your kidneys to dry thus causing worsening function. You had your nephrostomy tubes capped this morning. You came into the emergency department and we found that you had 120 mL of volume in your bladder. You were able to void about 60 mL. You do have a history of significant obstruction of your kidneys. I discussed your case with Dr. Luu. He would like your nephrostomy tubes to begin draining again. He wants your kidney function a little better before they decide to cap you. please reconnect the bags at home again. Please complete the full course of ampicillin for the urinary tract infection prescribed by [facility]. If at any point you find that the nephrostomy tubes are not draining, you develop pain, fevers have worsening shortness of air you must return immediately to the emergency department. If you find that there is concern with the draining of your nephrostomy tubes you may need to consider an alternative emergency department such as [facility] or [facility] as they have urology services and equipment that we do not have here.
[2021-08-21 13:32] LABS: ALBUMIN 3.4 g/dL (3.2-5.5); ALBUMIN/GLOBULIN RATIO 0.9 (1.0-2.2); BILIRUBIN,TOTAL 0.5 mg/dL (0.2-1.0); CALCIUM 10.6 mg/dL (8.5-10.3); POTASSIUM 4.8 mmol/L (3.5-5.0); TOTAL PROTEIN 7.3 g/dL (6.7-8.2)
[2021-08-21 13:47] LABS: INR 1.5 (0.8-1.2); PT - PROTHROMBIN TIME 17.1 secs (9.9-12.6)
--- NOTE | 2021-08-21 13:59 | XRAY Report ---
PROCEDURE: Chest 1 View X-Ray INDICATIONS: Chest Pain TECHNIQUE: One view of the chest was acquired. COMPARISON: 03/14/2016 FINDINGS: Heart size is enlarged. There is mild vascular congestion present. Pleural spaces are clear . No pneumothorax. Left-sided single-lead pacemaker/fibular present. Atherosclerotic vascular calcification noted in the aortic arch. Midline sternotomy wires noted. IMPRESSION: Cardiomegaly and mild vascular congestion Defibrillator Reviewed by: Enzo Wilcox MD on 08/21/2021 12:57 PM AKJONNIE Approved by: Enzo Wilcox MD on 08/21/2021 12:57 PM AKDT Station ID: [id number]
[2021-08-21 14:00] LABS: BILIRUBIN,URINE NEGATIVE (NEGATIVE); GLUCOSE, URINE (UA) NEGATIVE (NEGATIVE); KETONES,URINE (UA) NEGATIVE (NEGATIVE); LEUKOCYTE ESTERASE, URINE LARGE (NEGATIVE); NITRITE,URINE NEGATIVE (NEGATIVE); OCCULT BLOOD,URINE LARGE (NEGATIVE); PROTEIN,URINE 100 mg/dL (NEGATIVE); UROBILINOGEN,URINE 0.2 (NORMAL) E.U./dL (NORMAL)
[2021-08-21 14:13] LABS: CLARITY,URINE HAZY (CLEAR)
[2021-08-21 14:20] LABS: BACTERIA,URINE Moderate /HPF (None Seen); SQUAMOUS EPITHELIAL CELL,UR RARE Squamous (<= Few); WBC CLUMPS,URINE PRESENT; WBC,URINE >25 /HPF (0-3)
[2021-08-21 14:38] VITALS: BP 120/75
== END 2021-08-21 14:38 | disposition home or self-care (01) ==
LOC: ED 12:43
DX: N13.30 Unspecified hydronephrosis (principal); I13.0 Hypertensive heart and chronic kidney disease with heart failure and stage 1 through stage 4 chronic kidney disease, or unspecified chronic kidney disease; E11.22 Type 2 diabetes mellitus with diabetic chronic kidney disease; N18.32 Chronic kidney disease, stage 3b; I50.9 Heart failure, unspecified; Z79.84 Long term (current) use of oral hypoglycemic drugs
CPT/HCPCS: 36415; 80053; 81001; 81003; 83690; 83880; 84484; 85025; 85610; 87086; 93005; 99284